=== PATIENT | female | born 1990 | race Caucasian/White ===

== ENCOUNTER 2019-07-03 16:55 | Emergency (ER) | payer MEDICAID, MEDICARE ==
[~2019-07-03] VITALS: Ht 175.3 cm; Wt 54.4 kg
[2019-07-03 16:59] VITALS: BP 177/112
[2019-07-03] MEDS ORDERED: SEROQUEL300 MG ORAL (17:02)
--- NOTE | 2019-07-03 17:05 | NUR ---
ED Nurse Note: patient walked into ED from home c/o nausea, vomiting for the past 8 hours. patient denies any abdominal pain or diarrhea. patient is alert awake x 4 ambulatory, breathing unlabored and even, speaking in full sentences.
--- NOTE | 2019-07-03 17:07 | NUR ---
ED Nurse Note: DR Garcia at bedside, patient reports she has been having intensely drinking alcohol for the past 4 days. patient reports she may be going through alcohol withdrawal. patient reports she last drank last night.
--- NOTE | 2019-07-03 17:12 | Emergency Room Report ---
History of Present Illness General Chief Complaint: Nausea Source: Patient Present Illness HPI 29-year-old female presents with acute nausea vomiting, started today after not drinking alcohol last drink was yesterday she has been drinking multiple beers every day for the past week, she states she has a history of alcohol withdrawal never had a seizure, severity is moderate, constant she feels shaky, feels nauseous, she endorses some abdominal cramps mild in nature no diarrhea no chest pain or shortness of breath patient presents for evaluation Allergies: Coded Allergies: No Known Allergies (Unverified , 07/03/19) COVID-19 Screening Contact w/high risk pt: No Recent Travel to affected area: No Experienced COVID-19 symptoms?: No Patient History Past Medical History: see triage record Social History: Reports: smoking, alcohol use Last Menstrual Period: JUNE 2019 Now: No Reviewed Nursing Documentation: PMH: Agreed; PSxH: Agreed Nursing Documentation-PMH Past Medical History: No Stated History Review of Systems All Other Systems: negative except mentioned in HPI Physical Exam Vital Signs Date Time Temp Pulse Resp B/P (MAP) Pulse Ox O2 Delivery O2 Flow Rate FiO2 07/03/19 16:59 97.9 93 18 177/112 96 Room Air Sp02 EP Interpretation: reviewed, normal General Appearance: well appearing, no apparent distress, alert Head: normocephalic, atraumatic Eyes: bilateral eye PERRL, bilateral eye EOMI ENT: uvula midline, moist mucus membranes Neck: supple, thyroid normal, supple/symm/no masses Respiratory: lungs clear, no respiratory distress, no retraction, no accessory muscle use Cardiovascular #1: normal peripheral pulses, regular rate, rhythm, no edema, no gallop, no murmur Gastrointestinal: non tender, soft, no guarding, no rebound Musculoskeletal: normal inspection Neurologic: alert, oriented x3 Psychiatric: anxious Skin: no rash, warm/dry Medical Decision Making Diagnostic Impression: Primary Impression: Alcohol withdrawal Qualified Codes: F10.230 - Alcohol dependence with withdrawal, uncomplicated ER Course 29-year-old female presents with mild alcohol withdrawal, patient given Ativan, and Librium reevaluation 6:23 PM patient is tolerating good p.o., feels better Counseled patient that she needs to slowly stop drinking alcohol she can drink and then stop suddenly otherwise she can precipitate withdrawal Tremulousness has stopped Laboratory Tests Test 07/03/19 17:15 White Blood Count 6.9 K/UL (4.8-10.8) Red Blood Count 4.62 M/UL (4.20-5.40) Hemoglobin 15.4 G/DL (12.0-16.0) Hematocrit 44.2 % (37.0-47.0) Mean Corpuscular Volume 96 FL (80-99) Mean Corpuscular Hemoglobin 33.3 PG (27.0-31.0) H Mean Corpuscular Hemoglobin Concent 34.8 G/DL (32.0-36.0) Red Cell Distribution Width 11.7 % (11.6-14.8) Platelet Count 287 K/UL (150-450) Mean Platelet Volume 5.0 FL (6.5-10.1) L Neutrophils (%) (Auto) 84.3 % (45.0-75.0) H Lymphocytes (%) (Auto) 11.7 % (20.0-45.0) L Monocytes (%) (Auto) 3.5 % (1.0-10.0) Eosinophils (%) (Auto) 0.0 % (0.0-3.0) Basophils (%) (Auto) 0.5 % (0.0-2.0) Sodium Level 137 MMOL/L (136-145) Potassium Level 3.9 MMOL/L (3.5-5.1) Chloride Level 95 MMOL/L (98-107) L Carbon Dioxide Level 17 MMOL/L (21-32) L Anion Gap 25 mmol/L (5-15) H Blood Urea Nitrogen 8 mg/dL (7-18) Creatinine 0.7 MG/DL (0.55-1.30) Estimated Glomerular Filtration Rate > 60 mL/min (>60) Glucose Level 108 MG/DL (74-106) H Calcium Level 10.0 MG/DL (8.5-10.1) Total Bilirubin 2.1 MG/DL (0.2-1.0) H Direct Bilirubin 0.5 MG/DL (0.0-0.3) H Aspartate Amino Transferase (AST) 69 U/L (15-37) H Alanine Aminotransferase (ALT) 116 U/L (12-78) H Alkaline Phosphatase 60 U/L (46-116) Total Protein 9.1 G/DL (6.4-8.2) H Albumin 5.3 G/DL (3.4-5.0) H Globulin 3.8 g/dL Albumin/Globulin Ratio 1.4 (1.0-2.7) Lipase 129 U/L (73-393) Human Chorionic Gonadotropin, Quant < 1 mIU/mL (1-6) L Last Vital Signs Date Time Temp Pulse Resp B/P (MAP) Pulse Ox O2 Delivery O2 Flow Rate FiO2 07/03/19 16:59 97.9 93 18 177/112 (133) 96 Room Air Disposition: HOME, SELF-CARE Condition: Stable Scripts Ondansetron (Zofran) 4 Mg Tablet 4 MG ORAL Q8H PRN for Nausea & Vomiting, #10 TAB 0 Refills Prov: Stu Garcia MD 07/03/19 Famotidine* (Pepcid 20mg tablet*) 20 Mg Tablet 20 MG ORAL TWICE A DAY, #60 TAB 0 Refills Prov: Stu Garcia MD 07/03/19 Referrals: [facility] Patient Instructions: Alcohol Use Disorder, Alcohol Withdrawal, [id number] Additional Instructions: The patient was provided with discharge instructions, notified to follow-up with a primary care doctor and or specialist in the next 24-48 hours, and to return to the ED if they have worsening of their symptoms. Please note that this report is being documented using [employer] technology. This can lead to erroneous entry secondary to incorrect interpretation by the dictating instrument. Stu Garcia MD Jul 03, 2019 17:12
[2019-07-03] MEDS ORDERED: chlordiazePOXIDE 25mg Cap ORAL ONE (17:15)
[2019-07-03] MEDS ORDERED: LORazepam Inj 2mg/ml 1ml IV ONE (17:15)
[2019-07-03] MEDS ORDERED: Mylanta II UD 30ml ORAL ONE (17:15)
[2019-07-03 17:51] LABS: BASOPHILS % (AUTO) 0.5 % (0.0-2.0); HEMATOCRIT 44.2 % (37.0-47.0); HEMOGLOBIN 15.4 G/DL (12.0-16.0); LYMPHOCYTES % (AUTO) 11.7 % (20.0-45.0); MEAN CORPUSCULAR VOLUME 96 FL (80-99); MONOCYTES % (AUTO) 3.5 % (1.0-10.0); NEUTROPHILS % (AUTO) 84.3 % (45.0-75.0); PLATELET COUNT 287 K/UL (150-450); RED BLOOD COUNT 4.62 M/UL (4.20-5.40); RED CELL DISTRIBUTION WIDTH 11.7 % (11.6-14.8); WHITE BLOOD COUNT 6.9 K/UL (4.8-10.8)
[2019-07-03 17:59] LABS: ANION GAP 25 mmol/L (5-15); BLOOD UREA NITROGEN 8 mg/dL (7-18); CARBON DIOXIDE 17 MMOL/L (21-32); CHLORIDE 95 MMOL/L (98-107); CREATININE 0.7 MG/DL (0.55-1.30); POTASSIUM 3.9 MMOL/L (3.5-5.1); SODIUM 137 MMOL/L (136-145)
[2019-07-03 18:10] LABS: ALANINE AMINOTRANSFERASE 116 U/L (12-78); ALBUMIN 5.3 G/DL (3.4-5.0); ALBUMIN/GLOBULIN RATIO 1.4 (1.0-2.7); ALKALINE PHOSPHATASE 60 U/L (46-116); ASPARTATE AMINO TRANSFERASE 69 U/L (15-37); BILIRUBIN,TOTAL 2.1 MG/DL (0.2-1.0)
[2019-07-03 18:11] LABS: BILIRUBIN,DIRECT 0.5 MG/DL (0.0-0.3)
[2019-07-03] MEDS ORDERED: ZOFRAN4 MG ORAL (18:24)
[2019-07-03] MEDS ORDERED: FAMOTIDINE20 MG ORAL (18:24)
[2019-07-03 18:35] VITALS: BP 141/99
[2019-07-03 18:39] VITALS: BP 141/99
--- NOTE | 2019-07-03 18:39 | NUR ---
ER DISCHARGE NOTE: Patient is cleared to be discharged per EDGAR ELDER, pt is aox4, on room air, with stable vital signs. pt was given dc and prescription instructions, pt was able to verbalize understanding, pt id band and iv site removed without complications. pt is able to ambulate with steady gait. pt took all belongings.
== END 2019-07-03 18:39 | disposition home or self-care (01) ==
LOC: EMR 17:31
DX: F10.239 Alcohol dependence with withdrawal, unspecified (principal); R11.2 Nausea with vomiting, unspecified; F17.200 Nicotine dependence, unspecified, uncomplicated
CPT/HCPCS: 36415; 80053; 82248; 83690; 84702; 85025; 96361; 96374; 96375; 99284; J2405; J7030; S0028

== ENCOUNTER 2019-11-19 09:13 | Emergency (ER) | payer MEDICAID, MEDICARE ==
[~2019-11-19] VITALS: Ht 175.3 cm; Wt 54.4 kg
[~2019-11-19 09:13] MED LIST: FAMOTIDINE20 MG ORAL; SEROQUEL300 MG ORAL; ZOFRAN4 MG ORAL
[2019-11-19 09:42] VITALS: BP 107/78
[2019-11-19] MEDS ORDERED: chlordiazePOXIDE 25mg Cap ORAL ONE (09:45)
--- NOTE | 2019-11-19 09:47 | Emergency Room Report ---
History of Present Illness General Chief Complaint: Alcohol Intoxication Source: Patient Present Illness HPI 29-year-old female presents with 4 days of binge drinking history of alcohol withdrawal no seizures, patient states she did not he feels tremulous, she states she drank alcohol last night, feels a little shaky denies any fevers chills chest pain she states she needs informational resources, she has not yet called the resources she has been provided, severity is moderate, constant aggravated by alcohol abuse alleviated by getting off alcohol patient presents for evaluation treatment Allergies: Coded Allergies: No Known Allergies (Unverified , 07/03/19) COVID-19 Screening Contact w/high risk pt: No Recent Travel to affected area: No Experienced COVID-19 symptoms?: No COVID-19 Testing performed CUSTOMER PROGRAM MANAGER: No Patient History Past Medical History: see triage record Last Menstrual Period: 11/05/19 Now: No : 1 Para: 0 Reviewed Nursing Documentation: PMH: Agreed; PSxH: Agreed Nursing Documentation-PMH Past Medical History: No History, Except For Hx Cardiac Problems: No - anxiety, panic attack. Review of Systems All Other Systems: negative except mentioned in HPI Physical Exam Vital Signs Date Time Temp Pulse Resp B/P (MAP) Pulse Ox O2 Delivery O2 Flow Rate FiO2 11/19/19 09:19 98.1 93 19 107/78 (88) 97 Room Air General Appearance: well appearing, no apparent distress Head: normocephalic, atraumatic Eyes: bilateral eye PERRL, bilateral eye EOMI ENT: hearing grossly normal, normal voice Neck: full range of motion, supple Respiratory: no respiratory distress, speaking full sentences Neurologic: alert, normal gait Psychiatric: mood/affect normal Skin: no rash Medical Decision Making Diagnostic Impression: Primary Impression: Alcohol abuse ER Course 29-year-old female presents with alcohol abuse, currently no signs of active withdrawal no tremulousness, no tachycardia, patient was given a small dose of Librium, patient's friend will pick her up, a list of resources were given to patient in order to look for alcohol treatment programs Patient was [facility] to [facility], [employer] [facility], [facility] Disposition home with return precautions Last Vital Signs Date Time Temp Pulse Resp B/P (MAP) Pulse Ox O2 Delivery O2 Flow Rate FiO2 11/19/19 09:42 98.1 70 19 107/78 97 Room Air Disposition: HOME, SELF-CARE Condition: Stable Referrals: NON PHYSICIAN ([facility]) [facility] Patient Instructions: Alcohol Use Disorder Additional Instructions: The patient was provided with discharge instructions, notified to follow-up with a primary care doctor and or specialist in the next 24-48 hours, and to return to the ED if they have worsening of their symptoms. Please note that this report is being documented using [employer] technology. This can lead to erroneous entry secondary to incorrect interpretation by the dictating instrument. Stu Garcia MD Nov 19, 2019 09:47
[2019-11-19] MEDS ORDERED: ZOFRAN4 MG ORAL (09:53)
[2019-11-19 09:58] VITALS: BP 107/78
== END 2019-11-19 09:59 | disposition home or self-care (01) ==
LOC: EMR 09:28
DX: F10.10 Alcohol abuse, uncomplicated (principal)
CPT/HCPCS: 81025; Z7502; 99282

== ENCOUNTER 2019-12-18 03:31 | Inpatient (IN) | payer MEDICAID ==
[~2019-12-18] VITALS: Ht 175.3 cm; Wt 56.0 kg
[2019-12-18] VITALS (7 sets, daily range): BP systolic 122–148; BP diastolic 85–95
[2019-12-18] MEDS ORDERED: LORazepam Inj 2mg/ml 1ml IV ONE ×2 (03:45→04:15)
[2019-12-18] MEDS ORDERED: Folic Acid 1 MG, Magnesium Sulfate 2,000 MG, Multivitamin - 12 Injection 10 ML, Thiamin... IV ONE ×10 (03:45→04:15)
--- NOTE | 2019-12-18 03:50 | Emergency Room Report ---
History of Present Illness General Chief Complaint: Alcohol Withdrawal Source: Patient Present Illness HPI Patient is a 29-year-old female past medical history of alcohol abuse who presents the ER complaining of nausea and vomiting. Patient states that she consumes a significant amount of alcohol daily and that her last drink was around 5 hours ago. She states that she started having nausea, vomiting and shaking. She states that she falls frequently and hit her head a couple days ago. She denies any chest pain or shortness of breath. She denies any focal weakness. Patient denies any blood in her emesis. She denies any abdominal pain, diarrhea or dysuria. He denies any fever or chills. Allergies: Coded Allergies: No Known Allergies (Unverified , 07/03/19) COVID-19 Screening Contact w/high risk pt: No Recent Travel to affected area: No Experienced COVID-19 symptoms?: No Patient History Reviewed Nursing Documentation: PMH: Agreed; PSxH: Agreed Nursing Documentation-PMH Hx Cardiac Problems: No - anxiety, panic attack. Review of Systems All Other Systems: negative except mentioned in HPI Physical Exam Sp02 EP Interpretation: reviewed, normal General Appearance: alert, GCS 15, non-toxic, mild distress Head: other - Scattered ecchymosis and hematomas to patient's forehead Eyes: bilateral eye normal inspection, bilateral eye PERRL ENT: hearing grossly normal, normal pharynx, no angioedema, normal voice Neck: full range of motion, supple/symm/no masses Respiratory: chest non-tender, lungs clear, normal breath sounds, speaking full sentences Cardiovascular #1: regular rate, rhythm, no edema Gastrointestinal: normal bowel sounds, non tender, soft, non-distended, no guarding, no rebound Rectal: deferred Musculoskeletal: no calf tenderness, moves extm spontaneously Neurologic: environmental field team member III-XII nml as tested, oriented x3, other - + tremors Psychiatric: no suicidal/homicidal ideation Skin: no rash Lymphatic: no adenopathy Procedures Critical Care Time Critical Care Time Total critical care time: Approximately 35 minutes. Due to a high probability of clinically significant, life threatening deterioration, the patient required my highest level of preparedness to intervene emergently and I personally spent this critical care time directly and personally managing the patient. This critical care time included obtaining a history; examining the patient; pulse oximetry; ordering and review of studies; arranging urgent treatment with development of a management plan; evaluation of patient's response to treatment ; frequent reassessment; and, discussions with other providers.This critical care time was performed to assess and manage the high probability of imminent, life-threatening deterioration that could result in multi-organ failure. It was exclusive of separately billable procedures and treating other patients and teaching time. Please see MDM section and the rest of the note for further information on patient assessment and treatment. Medical Decision Making Diagnostic Impression: Primary Impression: Severe sepsis Additional Impressions: Hypokalemia Alcohol withdrawal Hypomagnesemia UTI (urinary tract infection) ER Course Laboratory Tests Test 12/18/19 03:42 12/18/19 03:43 12/18/19 04:04 12/18/19 04:50 Venous Blood pH 7.519 Venous Blood Partial Pressure CO2 19.9 Venous Blood Partial Pressure O2 16.1 Venous Blood HCO3 15.8 Venous Blood Total Carbon Dioxide 19.9 Venous Blood Base Excess -4.5 Venous Blood Carboxyhemoglobin 0.3 % (0.5-1.5) L Methemoglobin 2.3 White Blood Count 24.0 K/UL (4.8-10.8) *H Red Blood Count 4.62 M/UL (4.20-5.40) Hemoglobin 15.7 G/DL (12.0-16.0) Hematocrit 42.8 % (37.0-47.0) Mean Corpuscular Volume 93 FL (80-99) Mean Corpuscular Hemoglobin 34.1 PG (27.0-31.0) H Mean Corpuscular Hemoglobin Concent 36.8 G/DL (32.0-36.0) H Red Cell Distribution Width 10.5 % (11.6-14.8) L Platelet Count 314 K/UL (150-450) Mean Platelet Volume 5.1 FL (6.5-10.1) L Neutrophils (%) (Auto) % (45.0-75.0) Lymphocytes (%) (Auto) % (20.0-45.0) Monocytes (%) (Auto) % (1.0-10.0) Eosinophils (%) (Auto) % (0.0-3.0) Basophils (%) (Auto) % (0.0-2.0) Differential Total Cells Counted 100 Neutrophils % (Manual) 88 % (45-75) H Lymphocytes % (Manual) 7 % (20-45) L Monocytes % (Manual) 5 % (1-10) Eosinophils % (Manual) 0 % (0-3) Basophils % (Manual) 0 % (0-2) Band Neutrophils 0 % (0-8) Platelet Estimate Adequate Platelet Morphology Normal Prothrombin Time 11.3 SEC (9.30-11.50) Prothrombin Time INR 1.0 (0.9-1.1) Activated Partial Thromboplast Time 24 SEC (23-33) Sodium Level 142 MMOL/L (136-145) Potassium Level 3.2 MMOL/L (3.5-5.1) L Chloride Level 99 MMOL/L (98-107) Carbon Dioxide Level 21 MMOL/L (21-32) Anion Gap 22 mmol/L (5-15) H Blood Urea Nitrogen 10 mg/dL (7-18) Creatinine 1.2 MG/DL (0.55-1.30) Estimated Glomerular Filtration Rate 52.4 mL/min (>60) Glucose Level 213 MG/DL (74-106) H Calcium Level 9.8 MG/DL (8.5-10.1) Magnesium Level 1.3 MG/DL (1.8-2.4) L Total Bilirubin 2.3 MG/DL (0.2-1.0) H Direct Bilirubin 0.5 MG/DL (0.0-0.3) H Aspartate Amino Transferase (AST) 50 U/L (15-37) H Alanine Aminotransferase (ALT) 48 U/L (12-78) Alkaline Phosphatase 54 U/L (46-116) Total Protein 9.0 G/DL (6.4-8.2) H Albumin 5.3 G/DL (3.4-5.0) H Globulin 3.7 g/dL Albumin/Globulin Ratio 1.4 (1.0-2.7) Lipase 83 U/L (73-393) Lactic Acid Level 6.30 mmol/L (0.4-2.0) H 4.10 mmol/L (0.66-2.22) H Test 12/18/19 05:20 Urine Color Yellow Urine Appearance Clear Urine pH 6 (4.5-8.0) Urine Specific [place] 1.015 (1.005-1.035) Urine Protein 2+ (NEGATIVE) H Urine Glucose (UA) Negative (NEGATIVE) Urine Ketones 4+ (NEGATIVE) H Urine Blood 2+ (NEGATIVE) H Urine Nitrite Positive (NEGATIVE) H Urine Bilirubin Negative (NEGATIVE) Urine Urobilinogen 1 MG/DL (0.0-1.0) H Urine Leukocyte Esterase 1+ (NEGATIVE) H Urine RBC 2-4 /HPF (0 - 2) H Urine WBC 0-2 /HPF (0 - 2) Urine Squamous Epithelial Cells Many /LPF (NONE/OCC) H Urine Bacteria Few /HPF (NONE) Urine HCG, Qualitative Negative (NEGATIVE) Urine Opiates Screen Negative (NEGATIVE) Urine Barbiturates Screen Negative (NEGATIVE) Phencyclidine (PCP) Screen Negative (NEGATIVE) Urine Amphetamines Screen Negative (NEGATIVE) Urine Benzodiazepines Screen Negative (NEGATIVE) Urine Cocaine Screen Negative (NEGATIVE) Urine Marijuana (THC) Screen Negative (NEGATIVE) Microbiology Date/Time Source Procedure Growth Status 12/18/19 04:50 Nasopharynx SARS-CoV-2 RdRp Gene Assay - Final Complete Laboratory Tests Test 12/18/19 03:42 12/18/19 03:43 12/18/19 04:04 12/18/19 04:50 Venous Blood pH 7.519 Venous Blood Partial Pressure CO2 19.9 Venous Blood Partial Pressure O2 16.1 Venous Blood HCO3 15.8 Venous Blood Total Carbon Dioxide 19.9 Venous Blood Base Excess -4.5 Venous Blood Carboxyhemoglobin 0.3 % (0.5-1.5) L Methemoglobin 2.3 White Blood Count 24.0 K/UL (4.8-10.8) *H Red Blood Count 4.62 M/UL (4.20-5.40) Hemoglobin 15.7 G/DL (12.0-16.0) Hematocrit 42.8 % (37.0-47.0) Mean Corpuscular Volume 93 FL (80-99) Mean Corpuscular Hemoglobin 34.1 PG (27.0-31.0) H Mean Corpuscular Hemoglobin Concent 36.8 G/DL (32.0-36.0) H Red Cell Distribution Width 10.5 % (11.6-14.8) L Platelet Count 314 K/UL (150-450) Mean Platelet Volume 5.1 FL (6.5-10.1) L Neutrophils (%) (Auto) % (45.0-75.0) Lymphocytes (%) (Auto) % (20.0-45.0) Monocytes (%) (Auto) % (1.0-10.0) Eosinophils (%) (Auto) % (0.0-3.0) Basophils (%) (Auto) % (0.0-2.0) Differential Total Cells Counted 100 Neutrophils % (Manual) 88 % (45-75) H Lymphocytes % (Manual) 7 % (20-45) L Monocytes % (Manual) 5 % (1-10) Eosinophils % (Manual) 0 % (0-3) Basophils % (Manual) 0 % (0-2) Band Neutrophils 0 % (0-8) Platelet Estimate Adequate Platelet Morphology Normal Prothrombin Time 11.3 SEC (9.30-11.50) Prothrombin Time INR 1.0 (0.9-1.1) Activated Partial Thromboplast Time 24 SEC (23-33) Sodium Level 142 MMOL/L (136-145) Potassium Level 3.2 MMOL/L (3.5-5.1) L Chloride Level 99 MMOL/L (98-107) Carbon Dioxide Level 21 MMOL/L (21-32) Anion Gap 22 mmol/L (5-15) H Blood Urea Nitrogen 10 mg/dL (7-18) Creatinine 1.2 MG/DL (0.55-1.30) Estimated Glomerular Filtration Rate 52.4 mL/min (>60) Glucose Level 213 MG/DL (74-106) H Calcium Level 9.8 MG/DL (8.5-10.1) Magnesium Level 1.3 MG/DL (1.8-2.4) L Total Bilirubin 2.3 MG/DL (0.2-1.0) H Direct Bilirubin 0.5 MG/DL (0.0-0.3) H Aspartate Amino Transferase (AST) 50 U/L (15-37) H Alanine Aminotransferase (ALT) 48 U/L (12-78) Alkaline Phosphatase 54 U/L (46-116) Total Protein 9.0 G/DL (6.4-8.2) H Albumin 5.3 G/DL (3.4-5.0) H Globulin 3.7 g/dL Albumin/Globulin Ratio 1.4 (1.0-2.7) Lipase 83 U/L (73-393) Lactic Acid Level 6.30 mmol/L (0.4-2.0) H Pending Test 12/18/19 05:20 Urine Color Pending Urine Appearance Pending Urine pH Pending Urine Specific [place] Pending Urine Protein Pending Urine Glucose (UA) Pending Urine Ketones Pending Urine Blood Pending Urine Nitrite Pending Urine Bilirubin Pending Urine Urobilinogen Pending Urine Leukocyte Esterase Pending Urine HCG, Qualitative Pending Urine Opiates Screen Pending Urine Barbiturates Screen Pending Phencyclidine (PCP) Screen Pending Urine Amphetamines Screen Pending Urine Benzodiazepines Screen Pending Urine Cocaine Screen Pending Urine Marijuana (THC) Screen Pending Patient has been pancultured. Lactate elevated with significant leukocytosis. Patient started on broad-spectrum antibiotics. Patient given IV fluids 30 cc/ kg. Patient's vital signs have been stable. Patient given multiple doses of IV Ativan to control her tremors as well as banana bag. Her potassium and magnesium has been repleted. Will be admitted for further treatment and evaluation. EKG Diagnostic Results EKG Time: 04:58 EP Interpretation: Maggie Kelly MD Rate: normal Rhythm: NSR ST Segments: no acute changes Other Impression Prolonged QT ASA given to the pt in ED: No Rhythm Strip Diag. Results Rhythm Strip Time: 03:59 EP Interpretation: yes - Maggie Kelly MD Rate: 80 bpm Rhythm: NSR, no PVC's, no ectopy Chest X-Ray Diagnostic Results Chest X-Ray Diagnostic Results : Chest X-Ray Ordered: Yes # of Views/Limited/Complete: 1 View Indication: Chest Pain EP Interpretation: Yes Interpretation: no consolidation, no effusion, no pneumothorax, no acute cardiopulmonary disease Impression: No acute disease Electronically Signed by: Maggie Kelly MD Disposition: ADMITTED INPATIENT Condition: Critical Physician Consult: Dr. Jeff at 5:45am Additional Instructions: Please note that this report is being documented using [employer] technology. This can lead to erroneous entry secondary to incorrect interpretation by the dictating instrument. Sepsis Event Note Evaluation Current Stage of Sepsis: Severe Sepsis Possible Source: Unknown Focused Exam Allergies: Coded Allergies: No Known Allergies (Unverified , 07/03/19) Date Exam Occurred: Dec 18, 2019 Time Exam Occurred: 04:46 Laboratory Studies Laboratory Tests Test 12/18/19 03:42 12/18/19 03:43 12/18/19 04:04 Venous Blood pH 7.519 Venous Blood Partial Pressure CO2 19.9 Venous Blood Partial Pressure O2 16.1 Venous Blood HCO3 15.8 Venous Blood Total Carbon Dioxide 19.9 Venous Blood Base Excess -4.5 Venous Blood Carboxyhemoglobin 0.3 % (0.5-1.5) L Methemoglobin 2.3 White Blood Count 24.0 K/UL (4.8-10.8) *H Red Blood Count 4.62 M/UL (4.20-5.40) Hemoglobin 15.7 G/DL (12.0-16.0) Hematocrit 42.8 % (37.0-47.0) Mean Corpuscular Volume 93 FL (80-99) Mean Corpuscular Hemoglobin 34.1 PG (27.0-31.0) H Mean Corpuscular Hemoglobin Concent 36.8 G/DL (32.0-36.0) H Red Cell Distribution Width 10.5 % (11.6-14.8) L Platelet Count 314 K/UL (150-450) Mean Platelet Volume 5.1 FL (6.5-10.1) L Neutrophils (%) (Auto) % (45.0-75.0) Lymphocytes (%) (Auto) % (20.0-45.0) Monocytes (%) (Auto) % (1.0-10.0) Eosinophils (%) (Auto) % (0.0-3.0) Basophils (%) (Auto) % (0.0-2.0) Neutrophils % (Manual) Pending Lymphocytes % (Manual) Pending Platelet Estimate Pending Platelet Morphology Pending Prothrombin Time 11.3 SEC (9.30-11.50) Prothromb Time International Ratio 1.0 (0.9-1.1) Activated Partial Thromboplast Time 24 SEC (23-33) Sodium Level 142 MMOL/L (136-145) Potassium Level 3.2 MMOL/L (3.5-5.1) L Chloride Level 99 MMOL/L (98-107) Carbon Dioxide Level 21 MMOL/L (21-32) Anion Gap 22 mmol/L (5-15) H Blood Urea Nitrogen 10 mg/dL (7-18) Creatinine 1.2 MG/DL (0.55-1.30) Estimat Glomerular Filtration Rate 52.4 mL/min (>60) Glucose Level 213 MG/DL (74-106) H Calcium Level 9.8 MG/DL (8.5-10.1) Magnesium Level 1.3 MG/DL (1.8-2.4) L Total Bilirubin 2.3 MG/DL (0.2-1.0) H Direct Bilirubin 0.5 MG/DL (0.0-0.3) H Aspartate Amino Transf (AST/SGOT) 50 U/L (15-37) H Alanine Aminotransferase (ALT/SGPT) 48 U/L (12-78) Alkaline Phosphatase 54 U/L (46-116) Total Protein 9.0 G/DL (6.4-8.2) H Albumin 5.3 G/DL (3.4-5.0) H Globulin 3.7 g/dL Albumin/Globulin Ratio 1.4 (1.0-2.7) Lipase 83 U/L (73-393) Lactic Acid Level 6.30 mmol/L (0.4-2.0) H Vital Signs Last 24 Hour Vital Signs Date Time Temp Pulse Resp B/P (MAP) Pulse Ox O2 Delivery O2 Flow Rate FiO2 12/18/19 04:15 87 20 139/78 98 12/18/19 03:50 98 24 Room Air 12/18/19 03:50 98.2 98 24 148/95 98 Room Air 12/18/19 03:45 98.2 120 25 148/95 (112) 100 Room Air 12/18/19 03:45 133 24 148/95 98 Respiratory Exam: Clear Cardiovascular Exam: RRR Capillary Refill: Less Than 2 Seconds Peripheral Pulse: Maggie Love M.D. Dec 18, 2019 03:50
--- NOTE | 2019-12-18 03:50 | NUR ---
ED Nurse Note: brought in to ed c/o etoh withdrawal onset today. presents with tremor, nv, and states last etoh was 5 hrs ago. ermd at bedside, on monitor.
[2019-12-18 03:59] LABS: HEMATOCRIT 42.8 % (37.0-47.0); HEMOGLOBIN 15.7 G/DL (12.0-16.0); MEAN CORPUSCULAR VOLUME 93 FL (80-99); PLATELET COUNT 314 K/UL (150-450); RED BLOOD COUNT 4.62 M/UL (4.20-5.40); RED CELL DISTRIBUTION WIDTH 10.5 % (11.6-14.8)
--- NOTE | 2019-12-18 04:00 | NUR ---
ED Nurse Note: blood drawn and sent to lab
--- NOTE | 2019-12-18 04:10 | NUR ---
ED Nurse Note: vbg drawn by primary rn and given to rt for VBG
[2019-12-18 04:12] LABS: CALCIUM 9.8 MG/DL (8.5-10.1); CREATININE 1.2 MG/DL (0.55-1.30); POTASSIUM 3.2 MMOL/L (3.5-5.1)
--- NOTE | 2019-12-18 04:21 | NUR ---
ED Nurse Note: XR AT BEDSIDE
[2019-12-18 04:23] LABS: ALBUMIN 5.3 G/DL (3.4-5.0); ALBUMIN/GLOBULIN RATIO 1.4 (1.0-2.7); BILIRUBIN,TOTAL 2.3 MG/DL (0.2-1.0)
[2019-12-18 04:25] LABS: BILIRUBIN,DIRECT 0.5 MG/DL (0.0-0.3)
[2019-12-18] MEDS ORDERED: Thiamine 100mg in D5W 55ml IVPB ONE (04:30)
[2019-12-18] MEDS ORDERED: Folic Acid 1 MG, Magnesium Sulfate 2,000 MG, Multivitamin - 12 Injection 10 ML in Sodiu... IV ONE (04:30)
--- NOTE | 2019-12-18 04:35 | NUR ---
ED Nurse Note: unable to scan thiamine as the code was not valid. manual scan initiated and mixed 100mg thiamine in 50ml d5 solution.
--- NOTE | 2019-12-18 04:36 | NUR ---
ED Nurse Note: unable to obtain folvite as it is not in pyxis. per ermd, okay to wait for pharmacy in the morning as the patient is in stable condition. will continue to monitor patient.
--- NOTE | 2019-12-18 04:37 | NUR ---
ED Nurse Note: pt went to ct
[2019-12-18] MEDS ORDERED: Cefepime HCl 2 GM in D5W 55 ML IVPB ONE (04:45)
[2019-12-18] MEDS ORDERED: Vancomycin 1 GM in NS 275 ML IVPB ONE (04:45)
--- NOTE | 2019-12-18 04:47 | NUR ---
ED Nurse Note: pt back from ct
--- NOTE | 2019-12-18 05:30 | Diagnostic Imaging Report ---
EXAM: CT Head Without Intravenous Contrast CLINICAL HISTORY: TRAUMA TECHNIQUE: Axial computed tomography images of the head/brain without intravenous contrast. CTDI is 53.4 mGy and DLP is 1125.7 mGy-cm. One or more of the following dose reduction techniques were used: automated exposure control, adjustment of the mA and/or kV according to patient size, use of iterative reconstruction technique. COMPARISON: No relevant prior studies available. FINDINGS: Brain: Unremarkable. No hemorrhage. No significant white matter disease. No edema. Ventricles: Unremarkable. No ventriculomegaly. Bones/joints: Unremarkable. No acute fracture. Soft tissues: Unremarkable. Sinuses: Unremarkable as visualized. No acute sinusitis. Mastoid air cells: Unremarkable as visualized. No mastoid effusion. IMPRESSION: No evidence of acute intracranial process. Paranasal sinuses and mastoids are clear.
[2019-12-18 05:46] LABS: APPEARANCE,URINE CLEAR; BILIRUBIN, URINE NEGATIVE (NEGATIVE); GLUCOSE, URINE (UA) NEGATIVE (NEGATIVE); KETONES,URINE 4+ (NEGATIVE); LEUKOCYTE ESTERASE ,URINE 1+ (NEGATIVE); NITRITE,URINE POSITIVE (NEGATIVE); PH,URINE 6 (4.5-8.0); PROTEIN,URINE 2+ (NEGATIVE); UROBILINOGEN,URINE 1 MG/DL (0.0-1.0)
[2019-12-18 05:58] LABS: COLOR,URINE YELLOW
--- NOTE | 2019-12-18 07:10 | NUR ---
ED Nurse Note: report given to Ashtyn ALBERTS
--- NOTE | 2019-12-18 07:15 | NUR ---
TRANSFER TO FLOOR: Patient transferred to 234 as ordered, per dr pierre. Report given to Ashtyn ALBERTS. Belongings sent with patient
--- NOTE | 2019-12-18 07:20 | NUR ---
NURSE NOTES: Nurse report given by LEXUS Omer. Patient's admitted to the floor by merle with assist of LEXUS Conway and technical account representative. Patient's in stable condition, ambulates steady, AAO x 4, breathing regular and unlabored, no s/s of distress or SOB, lung sounds clear bilateral, breathing room air saturating at 98%. IV is saline locked, flushed well and patent. Bed low and locked, call light within reach, side rails x 2. salon designer applied, patient refused to change to hospital gown. Patient belonging list went over with both RNs at bedside. Patient has $94 dollars in [place], patient refused money to be kept in the safe. ID band noted on L arm. Will continue to monitor.
--- NOTE | 2019-12-18 07:53 | NUR ---
NURSE NOTES: Called and left message to Dr. Quintana regarding patient's admitting to [facility] at 0720. Awaiting for admitting orders.
[2019-12-18] MEDS ORDERED: Amikacin Rx to dose MISC PRN (08:30)
[2019-12-18] MEDS ORDERED: chlordiazePOXIDE 25mg Cap ORAL PRN (08:30)
[2019-12-18] MEDS ORDERED: Zolpidem 5mg tab ORAL PRN (08:30)
[2019-12-18] MEDS ORDERED: Miralax 17gm pkt ORAL PRN (08:30)
[2019-12-18] MEDS: Heparin 5000 units/ml inj SUBQ SCH ×2 (09:00→21:20)
[2019-12-18] MEDS: Piperacillin/Tazobactam 3.375 GM in NS 110 ML IVPB SCH ×2 (09:25→17:00)
[2019-12-18] MEDS ORDERED: Amikacin 800 MG in NS 110 ML IV SCH ×2 (10:00→13:00)
[2019-12-18] MEDS ORDERED: LORazepam Inj 2mg/ml 1ml IV PRN ×2 (10:45)
[2019-12-18] MEDS: chlordiazePOXIDE 25mg Cap ORAL SCH ×3 (11:17→23:39)
[2019-12-18] MEDS: LORazepam Inj 2mg/ml 1ml IV PRN (11:17)
--- NOTE | 2019-12-18 11:50 | NUR ---
CASE MANAGEMENT:INITIAL REVIEW 29 YO F BIBA FROM HOME CC: ALCOHOL WITHDRAWAL >>> complaining of nausea and vomiting PMHx; anxiety, panic attack. SI:SEPSIS. COVID (-) VS: T 98.2 HR 133 RR 24 B/P 148/95 SATS 100% ON RA LABS: WBC 24 K 3.2 AGAP 22 GLU 213 LACTIC ACID 6.3 MG 1.3 TBILI 2.3 DBILI 0.5 AST 50 IS: NS BOLUS X2 ZOFRAN IV X2 ATIVAN IV X2 FOLATE IV X1 THIAMINE IV X1 KCL IV X1 VANCO IV X1 CEFEPIME IV X1 PROMETHAZINE IM X1 PATIENT ADMITTED TO SDU 12/18/2019 @ 0546 DCP: HOME PLAN OF CARE: ID CONSULT SSW CONSULT
--- NOTE | 2019-12-18 11:57 | Consultation ---
History of Present Illness General Date patient seen: Dec 18, 2019 Chief Complaint: Alcohol Intoxication Present Illness HPI 29-year-old female past medical history of alcohol abuse who presents the ER complaining of nausea and vomiting. Patient states that she consumes a significant amount of alcohol daily and that her last drink was around 5 hours ago. She states that she started having nausea, vomiting and shaking. Her WBC was increased as well. Allergies: Coded Allergies: No Known Allergies (Unverified , 07/03/19) Medication History Scheduled Famotidine* (Pepcid 20mg tablet*), 20 MG ORAL TWICE A DAY Quetiapine Fumarate (Seroquel), 300 MG ORAL DAILY, (Reported) Scheduled PRN Ondansetron (Zofran), 4 MG ORAL Q8H PRN for Nausea & Vomiting Ondansetron (Zofran), 4 MG ORAL Q8H PRN for Nausea & Vomiting Patient History Healthcare decision maker Resuscitation status Advanced Directive on File Past Medical/Surgical History Past Medical/Surgical History: (1) ETOH abuse Review of Systems Eye: Reports: no symptoms Physical Exam General Appearance: WD/WN, no apparent distress Lines, tubes and drains: peripheral HEENT: normocephalic, atraumatic Neck: non-tender, normal alignment Respiratory/Chest: chest wall non-tender, lungs clear Cardiovascular/Chest: normal peripheral pulses, regular rhythm Abdomen: normal bowel sounds Last 24 Hour Vital Signs Date Time Temp Pulse Resp B/P (MAP) Pulse Ox O2 Delivery O2 Flow Rate FiO2 12/18/19 11:17 78 20 122/89 99 12/18/19 09:19 Room Air 12/18/19 07:15 98.1 78 20 122/89 99 Room Air 12/18/19 07:15 98.1 78 20 122/89 99 Room Air 12/18/19 06:17 97.8 85 20 128/92 99 Room Air 12/18/19 04:47 87 20 138/76 97 12/18/19 04:15 87 20 139/78 98 12/18/19 03:50 98 24 Room Air 12/18/19 03:50 98.2 98 24 148/95 98 Room Air 12/18/19 03:45 98.2 120 25 148/95 (112) 100 Room Air 12/18/19 03:45 133 24 148/95 98 Intake and Output 12/17/19 12/18/19 19:00 07:00 Intake Total 1000 ml Balance 1000 ml Intake IV Total 1000 ml Laboratory Tests Test 12/18/19 03:42 12/18/19 03:43 12/18/19 04:04 12/18/19 04:50 Venous Blood pH 7.519 Venous Blood Partial Pressure CO2 19.9 Venous Blood Partial Pressure O2 16.1 Venous Blood HCO3 15.8 Venous Blood Total Carbon Dioxide 19.9 Venous Blood Base Excess -4.5 Venous Blood Carboxyhemoglobin 0.3 % (0.5-1.5) L Methemoglobin 2.3 White Blood Count 24.0 K/UL (4.8-10.8) *H Red Blood Count 4.62 M/UL (4.20-5.40) Hemoglobin 15.7 G/DL (12.0-16.0) Hematocrit 42.8 % (37.0-47.0) Mean Corpuscular Volume 93 FL (80-99) Mean Corpuscular Hemoglobin 34.1 PG (27.0-31.0) H Mean Corpuscular Hemoglobin Concent 36.8 G/DL (32.0-36.0) H Red Cell Distribution Width 10.5 % (11.6-14.8) L Platelet Count 314 K/UL (150-450) Mean Platelet Volume 5.1 FL (6.5-10.1) L Neutrophils (%) (Auto) % (45.0-75.0) Lymphocytes (%) (Auto) % (20.0-45.0) Monocytes (%) (Auto) % (1.0-10.0) Eosinophils (%) (Auto) % (0.0-3.0) Basophils (%) (Auto) % (0.0-2.0) Differential Total Cells Counted 100 Neutrophils % (Manual) 88 % (45-75) H Lymphocytes % (Manual) 7 % (20-45) L Monocytes % (Manual) 5 % (1-10) Eosinophils % (Manual) 0 % (0-3) Basophils % (Manual) 0 % (0-2) Band Neutrophils 0 % (0-8) Platelet Estimate Adequate Platelet Morphology Normal Prothrombin Time 11.3 SEC (9.30-11.50) Prothromb Time International Ratio 1.0 (0.9-1.1) Activated Partial Thromboplast Time 24 SEC (23-33) Sodium Level 142 MMOL/L (136-145) Potassium Level 3.2 MMOL/L (3.5-5.1) L Chloride Level 99 MMOL/L (98-107) Carbon Dioxide Level 21 MMOL/L (21-32) Anion Gap 22 mmol/L (5-15) H Blood Urea Nitrogen 10 mg/dL (7-18) Creatinine 1.2 MG/DL (0.55-1.30) Estimat Glomerular Filtration Rate 52.4 mL/min (>60) Glucose Level 213 MG/DL (74-106) H Calcium Level 9.8 MG/DL (8.5-10.1) Magnesium Level 1.3 MG/DL (1.8-2.4) L Total Bilirubin 2.3 MG/DL (0.2-1.0) H Direct Bilirubin 0.5 MG/DL (0.0-0.3) H Aspartate Amino Transf (AST/SGOT) 50 U/L (15-37) H Alanine Aminotransferase (ALT/SGPT) 48 U/L (12-78) Alkaline Phosphatase 54 U/L (46-116) Total Protein 9.0 G/DL (6.4-8.2) H Albumin 5.3 G/DL (3.4-5.0) H Globulin 3.7 g/dL Albumin/Globulin Ratio 1.4 (1.0-2.7) Lipase 83 U/L (73-393) Lactic Acid Level 6.30 mmol/L (0.4-2.0) H 4.10 mmol/L (0.66-2.22) H Test 12/18/19 05:20 Urine Color Yellow Urine Appearance Clear Urine pH 6 (4.5-8.0) Urine Specific [place] 1.015 (1.005-1.035) Urine Protein 2+ (NEGATIVE) H Urine Glucose (UA) Negative (NEGATIVE) Urine Ketones 4+ (NEGATIVE) H Urine Blood 2+ (NEGATIVE) H Urine Nitrite Positive (NEGATIVE) H Urine Bilirubin Negative (NEGATIVE) Urine Urobilinogen 1 MG/DL (0.0-1.0) H Urine Leukocyte Esterase 1+ (NEGATIVE) H Urine RBC 2-4 /HPF (0 - 2) H Urine WBC 0-2 /HPF (0 - 2) Urine Squamous Epithelial Cells Many /LPF (NONE/OCC) H Urine Bacteria Few /HPF (NONE) Urine HCG, Qualitative Negative (NEGATIVE) Urine Opiates Screen Negative (NEGATIVE) Urine Barbiturates Screen Negative (NEGATIVE) Phencyclidine (PCP) Screen Negative (NEGATIVE) Urine Amphetamines Screen Negative (NEGATIVE) Urine Benzodiazepines Screen Negative (NEGATIVE) Urine Cocaine Screen Negative (NEGATIVE) Urine Marijuana (THC) Screen Negative (NEGATIVE) Microbiology Date/Time Source Procedure Growth Status 12/18/19 04:50 Nasopharynx SARS-CoV-2 RdRp Gene Assay - Final Complete Height (Feet): 5 Height (Inches): 9.00 Weight (Pounds): 119 Medications Current Medications Medications (Trade) Dose Ordered Sig/Gil Route PRN Reason Start Time Stop Time Status Last Admin Dose Admin Acetaminophen (Tylenol) 650 mg Q4H PRN ORAL fever (T>100.5) 12/18/19 08:30 01/17/20 08:29 Amikacin Protocol (Amikacin pharmacy to dose) 1 ea DAILY PRN MISC Per rx protocol 12/18/19 08:30 01/17/20 08:29 Chlordiazepoxide (Librium) 25 mg Q6H ORAL 12/18/19 12:00 12/25/19 08:29 12/18/19 11:17 Dextrose (Dextrose 50%) 25 ml Q30M PRN IV Hypoglycemia 12/18/19 08:30 03/17/20 08:29 Dextrose (Dextrose 50%) 50 ml Q30M PRN IV Hypoglycemia 12/18/19 08:30 03/17/20 08:29 Folic Acid 1 mg/ Magnesium Sulfate 2000 mg/ Multivitamins 10 ml/Potassium Chloride/Sodium Chloride 1,014.2 ml @ 124.876 mls/hr Q24H IV 12/19/19 09:00 01/18/20 08:59 Heparin Sodium (Porcine) (Heparin 5000 units/ml) 5,000 units EVERY 12 HOURS SUBQ 12/18/19 09:00 02/01/20 08:59 Lorazepam (Ativan 2mg/ml 1ml) 1 mg Q2H PRN IV For Anxiety 12/18/19 10:00 12/25/19 09:59 12/18/19 11:17 Lorazepam (Ativan 2mg/ml 1ml) 1 mg Q2H PRN IV restlessness 12/18/19 10:45 12/25/19 10:44 Lorazepam (Ativan 2mg/ml 1ml) 1 mg Q2H PRN IV shaking 12/18/19 10:45 12/25/19 10:44 Ondansetron HCl (Zofran) 4 mg Q6H PRN IVP Nausea & Vomiting 12/18/19 08:30 01/17/20 08:29 12/18/19 09:11 Piperacillin Sod/ Tazobactam Sod 3.375 gm/Sodium Chloride 110 ml @ 27.5 mls/hr Q8HR@0100,0900,1700 IVPB 12/18/19 09:00 12/25/19 08:59 12/18/19 09:25 Polyethylene Glycol (Miralax) 17 gm HSPRN PRN ORAL Constipation 12/18/19 08:30 01/17/20 08:29 Thiamine HCl 100 mg/Dextrose 56 ml @ 112 mls/hr Q24H IVPB 12/19/19 09:00 01/18/20 08:59 Zolpidem Tartrate (Ambien) 5 mg HSPRN PRN ORAL Insomnia 12/18/19 08:30 12/25/19 08:29 Assessment/Plan Problem List: (1) Alcohol withdrawal ICD Codes: F10.239 - Alcohol dependence with withdrawal, unspecified SNOMED: 561823571 (2) ETOH abuse ICD Codes: F10.10 - Alcohol abuse, uncomplicated SNOMED: 09830516 (3) UTI (urinary tract infection) ICD Codes: N39.0 - Urinary tract infection, site not specified SNOMED: 21250709 Assessment/Plan: iv fluids banana bag moreno culture iv abx seizure precaution librium Eugenia Spence MD Dec 18, 2019 11:57
[2019-12-18] MEDS ORDERED: chlordiazePOXIDE 25mg Cap ORAL SCH (12:00)
--- NOTE | 2019-12-18 12:33 | NUR ---
insurance b/ar info pending. Addendum: 12/18/19 at 1520 by Radha Oshea [facility] [facility] [facility] FAX CLINICALS TO [facility]ADINA BELLO P:[phone] F:[phone]
--- NOTE | 2019-12-18 14:38 | NUR ---
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 Pt presents as A&O4x. Pt resides w/ her boyfriend at [address] [place] [address] [id number], [place] [address]. Pt reports drinking 5-6x/week. Pt also reports drinking "various" drinks including hard liquors. PT did not provide specific information how much she drinks. Pt admits she is drinking more than average. Pt has hx of IP substance abuse rehab program. PT reports the program was not effective. SW provided brief counseling/support. Pt reported this SW that she will consider substance abuse rehab. Pt has hx of Anxiety and currently does not receive outpatient mental health services. SW provided mental health resource and substance abuse rehab resource. Pt accepted and did not share any further concern/needs at this time.
--- NOTE | 2019-12-18 14:45 | Consultation ---
History of Present Illness General Date patient seen: Dec 18, 2019 Chief Complaint: Alcohol Intoxication Present Illness HPI 29 y/o F with hx of ETOH abuse presented to ED on 12/18/19 with nausea and vomiting after drinking a 6 pack of beer . She had a recent fall and hit her head a couple days prior to admission. Denied CP, SOB, focal weakness, abd pain, hematemesis, diarrhea, f/c, dysuria. Allergies: Coded Allergies: No Known Allergies (Unverified , 07/03/19) Medication History Scheduled Famotidine* (Pepcid 20mg tablet*), 20 MG ORAL TWICE A DAY Quetiapine Fumarate (Seroquel), 300 MG ORAL DAILY, (Reported) Scheduled PRN Ondansetron (Zofran), 4 MG ORAL Q8H PRN for Nausea & Vomiting Ondansetron (Zofran), 4 MG ORAL Q8H PRN for Nausea & Vomiting Patient History Healthcare decision maker Resuscitation status Advanced Directive on File Patient History Narrative Pmhx: as above Shx: reviewed Fhx: non contributory Review of Systems All Other Systems: negative except mentioned in HPI Physical Exam Physical Exam Narrative General Appearance: alert Head: other - Scattered ecchymosis and hematomas to patient's forehead Eyes: bilateral eye normal inspection, bilateral eye PERRL ENT: hearing grossly normal, normal pharynx, no angioedema, normal voice Neck: full range of motion, supple/symm/no masses Respiratory: chest non-tender, lungs clear, normal breath sounds, speaking full sentences Cardiovascular #1: regular rate, rhythm, no edema Gastrointestinal: normal bowel sounds, non tender, soft, non-distended, no guarding, no rebound Skin: no rash Last 24 Hour Vital Signs Date Time Temp Pulse Resp B/P (MAP) Pulse Ox O2 Delivery O2 Flow Rate FiO2 12/18/19 12:00 80 12/18/19 12:00 Room Air 12/18/19 12:00 98.6 79 18 130/90 (103) 96 12/18/19 11:47 79 18 130/90 96 12/18/19 11:17 78 20 122/89 99 12/18/19 09:19 Room Air 12/18/19 08:00 92 12/18/19 08:00 97.5 87 18 128/85 (99) 100 12/18/19 07:15 98.1 78 20 122/89 99 Room Air 12/18/19 07:15 98.1 78 20 122/89 99 Room Air 12/18/19 06:17 97.8 85 20 128/92 99 Room Air 12/18/19 04:47 87 20 138/76 97 12/18/19 04:15 87 20 139/78 98 12/18/19 03:50 98 24 Room Air 12/18/19 03:50 98.2 98 24 148/95 98 Room Air 12/18/19 03:45 98.2 120 25 148/95 (112) 100 Room Air 12/18/19 03:45 133 24 148/95 98 Intake and Output 12/17/19 12/18/19 19:00 07:00 Intake Total 1000 ml Balance 1000 ml IV Total 1000 ml Laboratory Tests Test 12/18/19 03:42 12/18/19 03:43 12/18/19 04:04 12/18/19 04:50 Venous Blood pH 7.519 Venous Blood Partial Pressure CO2 19.9 Venous Blood Partial Pressure O2 16.1 Venous Blood HCO3 15.8 Venous Blood Total Carbon Dioxide 19.9 Venous Blood Base Excess -4.5 Venous Blood Carboxyhemoglobin 0.3 % (0.5-1.5) L Methemoglobin 2.3 White Blood Count 24.0 K/UL (4.8-10.8) *H Red Blood Count 4.62 M/UL (4.20-5.40) Hemoglobin 15.7 G/DL (12.0-16.0) Hematocrit 42.8 % (37.0-47.0) Mean Corpuscular Volume 93 FL (80-99) Mean Corpuscular Hemoglobin 34.1 PG (27.0-31.0) H Mean Corpuscular Hemoglobin Concent 36.8 G/DL (32.0-36.0) H Red Cell Distribution Width 10.5 % (11.6-14.8) L Platelet Count 314 K/UL (150-450) Mean Platelet Volume 5.1 FL (6.5-10.1) L Neutrophils (%) (Auto) % (45.0-75.0) Lymphocytes (%) (Auto) % (20.0-45.0) Monocytes (%) (Auto) % (1.0-10.0) Eosinophils (%) (Auto) % (0.0-3.0) Basophils (%) (Auto) % (0.0-2.0) Differential Total Cells Counted 100 Neutrophils % (Manual) 88 % (45-75) H Lymphocytes % (Manual) 7 % (20-45) L Monocytes % (Manual) 5 % (1-10) Eosinophils % (Manual) 0 % (0-3) Basophils % (Manual) 0 % (0-2) Band Neutrophils 0 % (0-8) Platelet Estimate Adequate Platelet Morphology Normal Prothrombin Time 11.3 SEC (9.30-11.50) Prothromb Time International Ratio 1.0 (0.9-1.1) Activated Partial Thromboplast Time 24 SEC (23-33) Sodium Level 142 MMOL/L (136-145) Potassium Level 3.2 MMOL/L (3.5-5.1) L Chloride Level 99 MMOL/L (98-107) Carbon Dioxide Level 21 MMOL/L (21-32) Anion Gap 22 mmol/L (5-15) H Blood Urea Nitrogen 10 mg/dL (7-18) Creatinine 1.2 MG/DL (0.55-1.30) Estimat Glomerular Filtration Rate 52.4 mL/min (>60) Glucose Level 213 MG/DL (74-106) H Calcium Level 9.8 MG/DL (8.5-10.1) Magnesium Level 1.3 MG/DL (1.8-2.4) L Total Bilirubin 2.3 MG/DL (0.2-1.0) H Direct Bilirubin 0.5 MG/DL (0.0-0.3) H Aspartate Amino Transf (AST/SGOT) 50 U/L (15-37) H Alanine Aminotransferase (ALT/SGPT) 48 U/L (12-78) Alkaline Phosphatase 54 U/L (46-116) Total Protein 9.0 G/DL (6.4-8.2) H Albumin 5.3 G/DL (3.4-5.0) H Globulin 3.7 g/dL Albumin/Globulin Ratio 1.4 (1.0-2.7) Lipase 83 U/L (73-393) Lactic Acid Level 6.30 mmol/L (0.4-2.0) H 4.10 mmol/L (0.66-2.22) H Test 9/11/20 05:20 Urine Color Yellow Urine Appearance Clear Urine pH 6 (4.5-8.0) Urine Specific [place] 1.015 (1.005-1.035) Urine Protein 2+ (NEGATIVE) H Urine Glucose (UA) Negative (NEGATIVE) Urine Ketones 4+ (NEGATIVE) H Urine Blood 2+ (NEGATIVE) H Urine Nitrite Positive (NEGATIVE) H Urine Bilirubin Negative (NEGATIVE) Urine Urobilinogen 1 MG/DL (0.0-1.0) H Urine Leukocyte Esterase 1+ (NEGATIVE) H Urine RBC 2-4 /HPF (0 - 2) H Urine WBC 0-2 /HPF (0 - 2) Urine Squamous Epithelial Cells Many /LPF (NONE/OCC) H Urine Bacteria Few /HPF (NONE) Urine HCG, Qualitative Negative (NEGATIVE) Urine Opiates Screen Negative (NEGATIVE) Urine Barbiturates Screen Negative (NEGATIVE) Phencyclidine (PCP) Screen Negative (NEGATIVE) Urine Amphetamines Screen Negative (NEGATIVE) Urine Benzodiazepines Screen Negative (NEGATIVE) Urine Cocaine Screen Negative (NEGATIVE) Urine Marijuana (THC) Screen Negative (NEGATIVE) Microbiology Date/Time Source Procedure Growth Status 12/18/19 04:50 Nasopharynx SARS-CoV-2 RdRp Gene Assay - Final Complete Height (Feet): 5 Height (Inches): 9.00 Weight (Pounds): 119 Medications Current Medications Medications (Trade) Dose Ordered Sig/Gil Route PRN Reason Start Time Stop Time Status Last Admin Dose Admin Acetaminophen (Tylenol) 650 mg Q4H PRN ORAL fever (T>100.5) 12/18/19 08:30 01/17/20 08:29 Chlordiazepoxide (Librium) 25 mg Q6H ORAL 12/18/19 12:00 12/25/19 08:29 12/18/19 11:17 Dextrose (Dextrose 50%) 25 ml Q30M PRN IV Hypoglycemia 12/18/19 08:30 03/17/20 08:29 Dextrose (Dextrose 50%) 50 ml Q30M PRN IV Hypoglycemia 12/18/19 08:30 03/17/20 08:29 Folic Acid 1 mg/ Magnesium Sulfate 2000 mg/ Multivitamins 10 ml/Potassium Chloride/Sodium Chloride 1,014.2 ml @ 124.876 mls/hr Q24H IV 12/19/19 09:00 01/18/20 08:59 Heparin Sodium (Porcine) (Heparin 5000 units/ml) 5,000 units EVERY 12 HOURS SUBQ 12/18/19 09:00 02/01/20 08:59 Lorazepam (Ativan 2mg/ml 1ml) 1 mg Q2H PRN IV For Anxiety 12/18/19 10:00 12/25/19 09:59 12/18/19 11:17 Lorazepam (Ativan 2mg/ml 1ml) 1 mg Q2H PRN IV restlessness 12/18/19 10:45 12/25/19 10:44 Lorazepam (Ativan 2mg/ml 1ml) 1 mg Q2H PRN IV shaking 12/18/19 10:45 12/25/19 10:44 Ondansetron HCl (Zofran) 4 mg Q6H PRN IVP Nausea & Vomiting 12/18/19 08:30 01/17/20 08:29 12/18/19 09:11 Piperacillin Sod/ Tazobactam Sod 3.375 gm/Sodium Chloride 110 ml @ 27.5 mls/hr Q8HR@0100,0900,1700 IVPB 12/18/19 09:00 12/25/19 08:59 12/18/19 09:25 Polyethylene Glycol (Miralax) 17 gm HSPRN PRN ORAL Constipation 12/18/19 08:30 01/17/20 08:29 Thiamine HCl 100 mg/Dextrose 56 ml @ 112 mls/hr Q24H IVPB 12/19/19 09:00 01/18/20 08:59 Zolpidem Tartrate (Ambien) 5 mg HSPRN PRN ORAL Insomnia 12/18/19 08:30 12/25/19 08:29 Assessment/Plan Assessment/Plan: Abx: IV Vancomycin x1 12/17 IV Amikacin x1 12/17 Cefepime x1 12/17 Zosyn 12/17- Assessment: COVID19 neg x1 (12/07 rapid COVID PCR neg) Sepsis vs SIRS Afebrile Leukocytosis- likely reactive Lactic acidosis -12/17 u/a wbc 0-2, nit +, leuk +2; ucx p (no UTI symptoms) CXR : no acute process Nausea/vomiting- from alcohol intoxication R infected ear piercing- furuncle recent fall -head CT: No evidence of acute intracranial process. Paranasal sinuses and mastoids are clear. AST elevation, mild UDS neg ETOH abuse Plan: -Switch Zosyn #1 to PO bactrim #/7 -f/u cx -Monitor CBC/CMP, temperatures -warm compresses on R ear Thank you for this consultation. Will continue to follow along with you. Discussed with Tracy Calderon M.D. Dec 18, 2019 14:45
--- NOTE | 2019-12-18 16:03 | Diagnostic Imaging Report ---
Indication: Chest pain Technique: One view of the chest Comparison: none Findings: Lungs and pleural spaces are clear. Heart size is normal. Impression: No acute process
--- NOTE | 2019-12-18 19:18 | NUR ---
NURSE HAND-OFF REPORT: Important Events on Shift: new admission, ETOH withdrawal Patient Status: fair Diet: Regular Pending Orders: n/a Pending Results/Labs:AM lab Pending MD notification: n/a Latest Vital Signs: Temperature 98.2 , Pulse 76 , B/P 135 /94 , Respiratory Rate 18 , O2 SAT 100 , Room Air, O2 Flow Rate . Vital Sign Comment: EKG Rhythm: Sinus Rhythm Rhythm change?: N MD Notified?: - MD Response: Latest Zuniga Fall Score: 35 Fall Risk: Medium Risk Safety Measures: Call light Within Reach, Bed Alarm Zone 1, Side Rails Side Rails x2, Bed position Low and Locked. Fall Precautions: Yellow Socks Patient Fall Education Report given to LEXUS Humphrey
--- NOTE | 2019-12-18 19:25 | NUR ---
NURSE NOTES: Report received from LEXUS Chamorro. Observed pt lying in the bed, A/O x4, denies any pain at this time, no acute distress noted at this time. SR on receiving associate. On room air with no SOB. IV on R AC 20 G, SL, asymptomatic. Bed in the lowest position. Side rails up x3. Call light within reach. Will continue to monitor.
[2019-12-18] MEDS: Bactrim-DS 1 tab ORAL SCH (21:18)
--- NOTE | 2019-12-18 21:40 | History & Physical ---
History and Physical History & Physicial Cb Quintana MD Dec 18, 2019 21:40
[2019-12-19] VITALS (7 sets, daily range): BP systolic 121–147; BP diastolic 87–101
--- NOTE | 2019-12-19 | History and Physical Report ---
DATE OF ADMISSION: 12/18/2019 CHIEF COMPLAINT: Nausea and vomiting. HISTORY OF PRESENT ILLNESS: This is a 29-year-old female with past medical history significant for alcoholism who presented to the emergency department complaining about nausea and vomiting since yesterday. She stated that she usually gets episodes of nausea and vomiting, stops drinking, her symptoms improve. Then, she goes back and start drinking again. She stated that she is consuming a lot of alcohol daily, wine, hard liquor, beer. Last drink was around 5 hours prior to ER visit. The patient is having nausea and vomiting and shaking. She falls frequently and hit her head a couple days ago. She denies any chest pain or shortness of breath. Denies any loss of consciousness or double vision. She denies any hematuria, hematochezia, hemoptysis. Denies any abdominal pain, diarrhea, or shortness of breath. Denies any fever or chills. Shortly after initial evaluation in the emergency department, the patient was noted to have elevated WBC of 24.0 and subsequently the patient was admitted to the hospital with leukocytosis, possible early sepsis versus SIRS as well as hypokalemia and dehydration. PAST MEDICAL HISTORY/PAST SURGICAL HISTORY: As above history of alcoholism, depression especially worsening after her mom 5 years ago. The patient denies any anxiety or panic attacks. MEDICATIONS: At home is none. ALLERGIES: No known drug allergies. SOCIAL HISTORY: The patient denies any smoking substance however she consumes lot of alcohol. She denies any IV drug abuse. PHYSICAL EXAMINATION: VITAL SIGNS: On admission from the emergency department, temperature of 98.2, pulse of 133, respirations 24, blood pressure 148/95, repeat pulse is 87 and blood pressure 139/78. GENERAL: The patient awake and responsive, no acute distress. HEAD AND NECK: Pupils are equal and reactive to light. Extraocular muscles intact. Neck was supple. No JVD. LUNGS: Good air entry. No wheezing or rales. HEART: S1, S2. Regular rhythm. No gallops. ABDOMEN: Soft, nontender, nondistended. Positive bowel sounds. EXTREMITIES: No cyanosis, clubbing, or edema. NEUROLOGIC: Cranial nerves II through XII grossly intact. Motor 5/5 in all extremities. Gait was not assessed due to patient's status . RECTAL: Refused and deferred. GENITOURINARY: Refused and deferred. PSYCHIATRIC: Mood and affect is depressed. LABORATORY AND DIAGNOSTIC DATA: Laboratory on admission, WBC of 24.0, hemoglobin 15, hematocrit 42, and platelets is 314. ABG, 7.519, pCO2 of 19, pO2 of 16, this is venous ABG. Sodium 142, potassium 3.2, chloride 99, bicarb 21, BUN 10, creatinine 1.2, and glucose is 213. Lactic acid is 6.3, repeat one is 4.10. Magnesium is 1.3. Total bilirubin of 2.3, direct bilirubin of 0.5, AST of 50, ALT of 48, alkaline phosphatase 54. Lipase is 83. Urine drug screen is negative. Urinalysis +2 protein, negative glucose, +4 ketone, positive nitrite, 0 to 2 wbc's. Negative beta-HCG. PT of 11, INR 1.0, PTT of 24. The patient has COVID-19 test, rapid COVID-[address] of the head, no evidence of acute intracranial process. Paranasal sinuses and mastoids are clear. Chest x-ray, no acute process. ASSESSMENT: 1. Leukocytosis, possible early sepsis versus SIRS. 2. Alcoholism with alcohol withdrawal. 3. Hypokalemia. 4. Hypomagnesemia. 5. Depression. 6. Dehydration. 7. Intractable and nausea vomiting possible due to alcohol induced. PLAN: Admit patient to monitored unit. We will follow up with Dr. Spence, Pulmonary Critical Care as well as Dr. Hall from Infectious Disease. The patient currently on Zosyn, was switched to Bactrim as per Dr. Hall. Aggressive IV hydration, magnesium IV and potassium supplements. Followup with the withdrawal precaution. Code status is Full code. DVT prophylaxis with heparin subcutaneous. Cb Quintana M.D. DR: Milagro JOB#: [id number] CC:
--- NOTE | 2019-12-19 00:30 | NUR ---
NURSE NOTES: pt c/o n/v and insomnia. PRN meds given. VS WNL. Will continue to monitor.
[2019-12-19] MEDS ORDERED: FAMOTIDINE20 MG ORAL (00:50)
[2019-12-19] MEDS ORDERED: COREG6.25 MG ORAL (00:51)
[2019-12-19] MEDS ORDERED: ARICEPT5 MG ORAL (00:52)
[2019-12-19] MEDS ORDERED: ASPIRIN-LOW81 MG ORAL (00:53)
[2019-12-19] MEDS ORDERED: ATORVASTATIN CA10 MG ORAL (00:56)
[2019-12-19] MEDS ORDERED: HYDRALAZINE HCL25 M1 ORAL (00:59)
[2019-12-19] MEDS ORDERED: HUMULIN R100 UNIT/1 SUBQ (01:04)
--- NOTE | 2019-12-19 03:56 | NUR ---
NURSE NOTES: Pt refused AM lab draw. Pt said she will have it in the morning after 0700, research phlebotomist notified. Will continue to monitor.
[2019-12-19] MEDS ORDERED: Vancomycin 1gm/D5W 275ml IVPB SCH ×2 (06:00)
[2019-12-19] MEDS: chlordiazePOXIDE 25mg Cap ORAL SCH ×3 (06:02→18:00)
--- NOTE | 2019-12-19 07:17 | NUR ---
NURSE HAND-OFF REPORT: Important Events on Shift: Pt having trouble sleeping. Patient Status: stable Diet: regular Pending Orders: n Pending Results/Labs: pt refused am lab, will be drawn in the morning. Pending MD notification:n Latest Vital Signs: Temperature 98.1 , Pulse 69 , B/P 132 /92 , Respiratory Rate 20 , O2 SAT 100 , Room Air, O2 Flow Rate . Vital Sign Comment: [] EKG Rhythm: Sinus Rhythm Rhythm change?: N MD Notified?: - MD Response: Latest Zuniga Fall Score: 35 Fall Risk: Medium Risk Safety Measures: Call light Within Reach, Bed Alarm Zone 1, Side Rails Side Rails x2, Bed position Low and Locked. Fall Precautions: Yellow Socks Patient Fall Education Report given to LEXUS Macrh.
--- NOTE | 2019-12-19 07:28 | NUR ---
NURSE NOTES: Received pt from LEXUS Humphrey. Pt is comfortably sitting in bed, not in resp. distress. in RA, SR in the monitor, IV in R AC G20 intact, no significant event from previous shift. Will cont. with plan of care.
--- NOTE | 2019-12-19 08:26 | Pulmonology Progress Note ---
Subjective ROS Limited/Unobtainable: No Constitutional: Reports: no symptoms HEENT: Repors: no symptoms Allergies: Coded Allergies: No Known Allergies (Unverified , 07/03/19) Objective Last 24 Hour Vital Signs Date Time Temp Pulse Resp B/P (MAP) Pulse Ox O2 Delivery O2 Flow Rate FiO2 12/19/19 04:00 Room Air 12/19/19 04:00 80 12/19/19 04:00 98.1 69 20 132/92 (105) 100 12/19/19 00:00 98.1 73 20 130/91 (104) 98 12/19/19 00:00 74 12/19/19 00:00 Room Air 12/18/19 20:00 97.7 78 18 144/94 (111) 100 12/18/19 20:00 84 12/18/19 20:00 Room Air 12/18/19 16:00 Room Air 12/18/19 16:00 98.2 76 18 135/94 (108) 100 12/18/19 16:00 84 12/18/19 12:00 80 12/18/19 12:00 Room Air 12/18/19 12:00 98.6 79 18 130/90 (103) 96 12/18/19 11:47 79 18 130/90 96 12/18/19 11:17 78 20 122/89 99 12/18/19 09:19 Room Air Intake and Output 12/18/19 12/19/19 19:00 07:00 Intake Total 350 ml 200 ml Balance 350 ml 200 ml Intake Oral 350 ml 200 ml # Voids 1 1 General Appearance: no acute distress HEENT: normocephalic, atraumatic Respiratory: chest wall non-tender, lungs clear, normal breath sounds Breasts: no masses Cardiovascular: normal peripheral pulses, normal rate Abdomen: normal bowel sounds, soft, non tender, no organomegaly Genitourinary: normal external genitalia Microbiology Date/Time Source Procedure Growth Status 12/18/19 04:50 Nasopharynx SARS-CoV-2 RdRp Gene Assay - Final Complete Current Medications Medications (Trade) Dose Ordered Sig/Gil Route PRN Reason Start Time Stop Time Status Last Admin Dose Admin Acetaminophen (Tylenol) 650 mg Q4H PRN ORAL fever (T>100.5) 12/18/19 08:30 01/17/20 08:29 Chlordiazepoxide (Librium) 25 mg Q6H ORAL 12/18/19 12:00 12/25/19 08:29 12/19/19 06:02 Dextrose (Dextrose 50%) 25 ml Q30M PRN IV Hypoglycemia 12/18/19 08:30 03/17/20 08:29 Dextrose (Dextrose 50%) 50 ml Q30M PRN IV Hypoglycemia 12/18/19 08:30 03/17/20 08:29 Folic Acid 1 mg/ Magnesium Sulfate 2000 mg/ Multivitamins 10 ml/Potassium Chloride/Sodium Chloride 1,014.2 ml @ 124.876 mls/hr Q24H IV 12/19/19 09:00 01/18/20 08:59 Heparin Sodium (Porcine) (Heparin 5000 units/ml) 5,000 units EVERY 12 HOURS SUBQ 12/18/19 09:00 02/01/20 08:59 12/18/19 21:20 Lorazepam (Ativan 2mg/ml 1ml) 1 mg Q2H PRN IV For Anxiety 12/18/19 10:00 12/25/19 09:59 12/18/19 11:17 Lorazepam (Ativan 2mg/ml 1ml) 1 mg Q2H PRN IV restlessness 12/18/19 10:45 12/25/19 10:44 Lorazepam (Ativan 2mg/ml 1ml) 1 mg Q2H PRN IV shaking 12/18/19 10:45 12/25/19 10:44 Ondansetron HCl (Zofran) 4 mg Q6H PRN IVP Nausea & Vomiting 12/18/19 08:30 01/17/20 08:29 12/18/19 21:18 Polyethylene Glycol (Miralax) 17 gm HSPRN PRN ORAL Constipation 12/18/19 08:30 01/17/20 08:29 Thiamine HCl 100 mg/Dextrose 56 ml @ 112 mls/hr Q24H IVPB 12/19/19 09:00 01/18/20 08:59 Trimethoprim/ Sulfamethoxazole (Bactrim-DS) 1 tab Q12HR ORAL 12/18/19 21:00 12/25/19 20:59 12/18/19 21:18 Zolpidem Tartrate (Ambien) 5 mg HSPRN PRN ORAL Insomnia 12/18/19 08:30 12/25/19 08:29 12/19/19 00:24 Assessment/Plan Problems: (1) Alcohol withdrawal (2) ETOH abuse (3) UTI (urinary tract infection) Assessment/Plan iv abx check cultures f/u wbc librium prin dvt prophylaxis. Eugenia Spence MD Dec 19, 2019 08:26
[2019-12-19] MEDS ORDERED: Folic Acid 1 MG, Magnesium Sulfate 2,000 MG, Multivitamin - 12 Injection 10 ML in NS w/... IV SCH (09:00)
[2019-12-19] MEDS: Heparin 5000 units/ml inj SUBQ SCH ×2 (09:33→20:46)
[2019-12-19] MEDS: Bactrim-DS 1 tab ORAL SCH ×2 (09:33→20:31)
[2019-12-19 09:46] LABS: BASOPHILS % (AUTO) 0.8 % (0.0-2.0); EOSINOPHILS % (AUTO) 1.1 % (0.0-3.0); HEMATOCRIT 39.5 % (37.0-47.0); HEMOGLOBIN 14.6 G/DL (12.0-16.0); LYMPHOCYTES % (AUTO) 25.8 % (20.0-45.0); MEAN CORPUSCULAR VOLUME 92 FL (80-99); MONOCYTES % (AUTO) 5.3 % (1.0-10.0); NEUTROPHILS % (AUTO) 67.1 % (45.0-75.0); PLATELET COUNT 152 K/UL (150-450); RED BLOOD COUNT 4.27 M/UL (4.20-5.40); RED CELL DISTRIBUTION WIDTH 10.3 % (11.6-14.8); WHITE BLOOD COUNT 7.4 K/UL (4.8-10.8)
[2019-12-19] MEDS: Thiamine 100mg IVPB (Q24H) IVPB SCH ×2 (09:47)
--- NOTE | 2019-12-19 10:04 | NUR ---
NURSE NOTES: Called Dr. Spence [phone], and left a message regarding Pt change of rhythm SR --> AJR. Pt asymptomatic. Awaiting for response.
[2019-12-19 10:07] LABS: PHOSPHORUS 2.6 MG/DL (2.5-4.9)
[2019-12-19 10:13] LABS: ALANINE AMINOTRANSFERASE 50 U/L (12-78); ALBUMIN 4.4 G/DL (3.4-5.0); ALBUMIN/GLOBULIN RATIO 1.3 (1.0-2.7); ALKALINE PHOSPHATASE 39 U/L (46-116); ANION GAP 11 mmol/L (5-15); ASPARTATE AMINO TRANSFERASE 60 U/L (15-37); BILIRUBIN,TOTAL 1.4 MG/DL (0.2-1.0); BLOOD UREA NITROGEN 4 mg/dL (7-18); CALCIUM 9.3 MG/DL (8.5-10.1); CARBON DIOXIDE 27 MMOL/L (21-32); CHLORIDE 102 MMOL/L (98-107); CREATININE 0.7 MG/DL (0.55-1.30); POTASSIUM 3.2 MMOL/L (3.5-5.1); SODIUM 140 MMOL/L (136-145)
[2019-12-19 10:14] LABS: BILIRUBIN,DIRECT 0.3 MG/DL (0.0-0.3)
--- NOTE | 2019-12-19 13:42 | NUR ---
CASE MANAGEMENT:REVIEW SI;LEUKOCYTOSIS. ETOH WITHDRAWAL. HYPOKALEMIA. 98.6 80 20 144/94 98% ON RA ESR 24 K+ 3.2 T-BILI 1.4 AST 60 ALP 39 CRP 1.9 IS;THIAMINE IV Q24 BACTRIM DS PO Q12 LIBRIUM PO Q6 HEPARINS SUBQ Q12 FOLIC ACID/MAG SULF/KCL IV Q24 MARCIAL STATUS DCP;FROM HOME
--- NOTE | 2019-12-19 14:10 | NUR ---
NURSE NOTES: Transfered pt to room 303-1, in stable condition. Gave report to LEXUS Crews.
--- NOTE | 2019-12-19 14:15 | NUR ---
NURSE NOTES: Patient arrived safely from 2W to 3E via hospital bed. Patient is awake and alert, no signs of distress, anxiety noted. Patient states that she is eager to go home. Right AC IV is leaking and painful, will insert new IV. Vital signs are stable. Bed is low and locked, side rails up x2, call light is within reach.
--- NOTE | 2019-12-19 14:53 | Internal Med Progress Note ---
Subjective Date of Service: Dec 19, 2019 Physician Name CrissJoey Attending Physician Cb Quintana MD Current Medications Medications (Trade) Dose Ordered Sig/Gil Route PRN Reason Start Time Stop Time Status Last Admin Dose Admin Acetaminophen (Tylenol) 650 mg Q4H PRN ORAL fever (T>100.5) 12/18/19 08:30 01/17/20 08:29 Chlordiazepoxide (Librium) 25 mg Q6H ORAL 12/18/19 12:00 12/25/19 08:29 12/19/19 11:46 Dextrose (Dextrose 50%) 25 ml Q30M PRN IV Hypoglycemia 12/18/19 08:30 03/17/20 08:29 Dextrose (Dextrose 50%) 50 ml Q30M PRN IV Hypoglycemia 12/18/19 08:30 03/17/20 08:29 Folic Acid 1 mg/ Magnesium Sulfate 2000 mg/ Multivitamins 10 ml/Potassium Chloride/Sodium Chloride 1,014.2 ml @ 124.876 mls/hr Q24H IV 12/19/19 09:00 01/18/20 08:59 12/19/19 09:32 Heparin Sodium (Porcine) (Heparin 5000 units/ml) 5,000 units EVERY 12 HOURS SUBQ 12/18/19 09:00 02/01/20 08:59 12/19/19 09:33 Lorazepam (Ativan 2mg/ml 1ml) 1 mg Q2H PRN IV For Anxiety 12/18/19 10:00 12/25/19 09:59 12/18/19 11:17 Lorazepam (Ativan 2mg/ml 1ml) 1 mg Q2H PRN IV restlessness 12/18/19 10:45 12/25/19 10:44 Lorazepam (Ativan 2mg/ml 1ml) 1 mg Q2H PRN IV shaking 12/18/19 10:45 12/25/19 10:44 Ondansetron HCl (Zofran) 4 mg Q6H PRN IVP Nausea & Vomiting 12/18/19 08:30 01/17/20 08:29 12/18/19 21:18 Polyethylene Glycol (Miralax) 17 gm HSPRN PRN ORAL Constipation 12/18/19 08:30 01/17/20 08:29 Thiamine HCl 100 mg/Dextrose 56 ml @ 112 mls/hr Q24H IVPB 12/19/19 09:00 01/18/20 08:59 12/19/19 09:47 Trimethoprim/ Sulfamethoxazole (Bactrim-DS) 1 tab Q12HR ORAL 12/18/19 21:00 12/25/19 20:59 12/19/19 09:33 Zolpidem Tartrate (Ambien) 5 mg HSPRN PRN ORAL Insomnia 12/18/19 08:30 12/25/19 08:29 12/19/19 00:24 Allergies: Coded Allergies: No Known Allergies (Unverified , 07/03/19) ROS Limited/Unobtainable: No Constitutional: Reports: no symptoms HEENT: Reports: no symptoms Cardiovascular: Reports: no symptoms Respiratory: Reports: no symptoms Gastrointestinal/Abdominal: Reports: nausea, vomiting Genitourinary: Reports: no symptoms Neurologic/Psychiatric: Reports: tremors Subjective 29 YO F admited with nausea and vomiting. Now acute alcohol withdrawal. Cover for Int Med-DR Quintana Objective Last Vital Signs Date Time Temp Pulse Resp B/P (MAP) Pulse Ox O2 Delivery O2 Flow Rate FiO2 12/19/19 12:00 85 12/19/19 12:00 Room Air 12/19/19 12:00 98.6 20 140/89 (106) 100 Laboratory Tests Test 12/19/19 09:05 White Blood Count 7.4 K/UL (4.8-10.8) # Red Blood Count 4.27 M/UL (4.20-5.40) Hemoglobin 14.6 G/DL (12.0-16.0) Hematocrit 39.5 % (37.0-47.0) Mean Corpuscular Volume 92 FL (80-99) Mean Corpuscular Hemoglobin 34.3 PG (27.0-31.0) H Mean Corpuscular Hemoglobin Concent 37.0 G/DL (32.0-36.0) H Red Cell Distribution Width 10.3 % (11.6-14.8) L Platelet Count 152 K/UL (150-450) # Mean Platelet Volume 5.2 FL (6.5-10.1) L Neutrophils (%) (Auto) 67.1 % (45.0-75.0) Lymphocytes (%) (Auto) 25.8 % (20.0-45.0) Monocytes (%) (Auto) 5.3 % (1.0-10.0) Eosinophils (%) (Auto) 1.1 % (0.0-3.0) Basophils (%) (Auto) 0.8 % (0.0-2.0) Erythrocyte Sedimentation Rate 21 MM/HR (0-20) H Sodium Level 140 MMOL/L (136-145) Potassium Level 3.2 MMOL/L (3.5-5.1) L Chloride Level 102 MMOL/L (98-107) Carbon Dioxide Level 27 MMOL/L (21-32) Anion Gap 11 mmol/L (5-15) Blood Urea Nitrogen 4 mg/dL (7-18) L Creatinine 0.7 MG/DL (0.55-1.30) Estimat Glomerular Filtration Rate > 60 mL/min (>60) Glucose Level 87 MG/DL (74-106) # Calcium Level 9.3 MG/DL (8.5-10.1) Phosphorus Level 2.6 MG/DL (2.5-4.9) Magnesium Level 2.4 MG/DL (1.8-2.4) Total Bilirubin 1.4 MG/DL (0.2-1.0) H Direct Bilirubin 0.3 MG/DL (0.0-0.3) Aspartate Amino Transf (AST/SGOT) 60 U/L (15-37) H Alanine Aminotransferase (ALT/SGPT) 50 U/L (12-78) Alkaline Phosphatase 39 U/L (46-116) L C-Reactive Protein, Quantitative 1.9 mg/dL (0.00-0.90) H Total Protein 7.9 G/DL (6.4-8.2) Albumin 4.4 G/DL (3.4-5.0) Globulin 3.5 g/dL Albumin/Globulin Ratio 1.3 (1.0-2.7) Rapid Plasma Reagin Pending HIV (1&2) Antibody Rapid Negative (NEGATIVE) Microbiology Date/Time Source Procedure Growth Status 12/18/19 04:50 Nasopharynx SARS-CoV-2 RdRp Gene Assay - Final Complete Intake and Output 12/18/19 12/19/19 19:00 07:00 Intake Total 350 ml 200 ml Balance 350 ml 200 ml Intake Oral 350 ml 200 ml # Voids 1 1 Objective PHYSICAL EXAMINATION: GENERAL: The patient awake and responsive, no acute distress. HEAD AND NECK: Pupils are equal and reactive to light. Extraocular muscles intact. Neck was supple. No JVD. LUNGS: Good air entry. No wheezing or rales. HEART: S1, S2. Regular rhythm. No gallops. ABDOMEN: Soft, nontender, nondistended. Positive bowel sounds. EXTREMITIES: No cyanosis, clubbing, or edema. NEUROLOGIC: Cranial nerves II through XII grossly intact. Motor 5/5 in all extremities. Gait was not assessed due to patient's status . RECTAL: Refused and deferred. GENITOURINARY: Refused and deferred. PSYCHIATRIC: Mood and affect is depressed. Assessment/Plan Assessment/Plan ASSESSMENT: 1. Leukocytosis, possible early sepsis versus SIRS. 2. Alcoholism with alcohol withdrawal. 3. Hypokalemia. 4. Hypomagnesemia. 5. Depression. 6. Dehydration. 7. Intractable and nausea vomiting possible due to alcohol induced. PLAN: 1. Admit patient to monitored unit. We will follow up with 2. =Pulmonary Critical Care 3. Dr. Hall = Infectious Disease. 4. S/P Zosyn, continue Bactrim as per Dr. Hall. 5. continue librium for alcohol withdrawal precaution. 6. Code status is Full code. 7. DVT prophylaxis with heparin subcutaneous. 8. CIWA= Joey Kahn MD Dec 19, 2019 14:53
[2019-12-19] MEDS: LORazepam Inj 2mg/ml 1ml IV PRN ×2 (16:44→20:47)
--- NOTE | 2019-12-19 16:47 | Infectious Diseases Prog Note ---
Assessment/Plan Assessment: COVID19 neg x1 (12/07 rapid COVID PCR neg) Sepsis vs SIRS Afebrile Leukocytosis, SP- reactive Lactic acidosis; improving -12/17 u/a wbc 0-2, nit +, leuk +2; ucx p (no UTI symptoms) CXR : no acute process Nausea/vomiting- from alcohol intoxication R infected ear piercing- furuncle recent fall -head CT: No evidence of acute intracranial process. Paranasal sinuses and mastoids are clear. AST elevation, mild- increasing JEANNINE, mild- SP UDS neg HIV ab screen neg ETOH abuse Plan: -Cont PO bactrim #2/7 -12/17 SP Zosyn #1, Cefepime x1, IV AMikacin x1, IV vancomycin x1 -f/u cx -Monitor CBC/CMP, temperatures -warm compresses on R ear Thank you for this consultation. Will continue to follow along with you. Discussed with RN. Subjective Allergies: Coded Allergies: No Known Allergies (Unverified , 07/03/19) afebrile at RA leukocytosis resolved Cr improved Objective Last 24 Hour Vital Signs Date Time Temp Pulse Resp B/P (MAP) Pulse Ox O2 Delivery O2 Flow Rate FiO2 12/19/19 14:20 Room Air 12/19/19 14:20 98.0 70 20 141/96 (111) 100 12/19/19 12:00 85 12/19/19 12:00 Room Air 12/19/19 12:00 98.6 76 20 140/89 (106) 100 12/19/19 08:00 98.6 78 20 121/87 (98) 100 12/19/19 08:00 Room Air 12/19/19 08:00 86 12/19/19 04:00 Room Air 12/19/19 04:00 80 12/19/19 04:00 98.1 69 20 132/92 (105) 100 12/19/19 00:00 98.1 73 20 130/91 (104) 98 12/19/19 00:00 74 12/19/19 00:00 Room Air 12/18/19 20:00 97.7 78 18 144/94 (111) 100 12/18/19 20:00 84 12/18/19 20:00 Room Air Height (Feet): 5 Height (Inches): 9.00 Weight (Pounds): 119 General Appearance: alert Head: other - Scattered ecchymosis and hematomas to patient's forehead Eyes: bilateral eye normal inspection, bilateral eye PERRL ENT: R pinna furuncle from infected piercing Neck: full range of motion, supple/symm/no masses Respiratory: chest non-tender, lungs clear, normal breath sounds, speaking full sentences Cardiovascular #1: regular rate, rhythm, no edema Gastrointestinal: normal bowel sounds, non tender, soft, non-distended, no guarding, no rebound Skin: no rash Microbiology Date/Time Source Procedure Growth Status 12/18/19 04:50 Nasopharynx SARS-CoV-2 RdRp Gene Assay - Final Complete Laboratory Tests Test 12/19/19 09:05 White Blood Count 7.4 K/UL (4.8-10.8) # Red Blood Count 4.27 M/UL (4.20-5.40) Hemoglobin 14.6 G/DL (12.0-16.0) Hematocrit 39.5 % (37.0-47.0) Mean Corpuscular Volume 92 FL (80-99) Mean Corpuscular Hemoglobin 34.3 PG (27.0-31.0) H Mean Corpuscular Hemoglobin Concent 37.0 G/DL (32.0-36.0) H Red Cell Distribution Width 10.3 % (11.6-14.8) L Platelet Count 152 K/UL (150-450) # Mean Platelet Volume 5.2 FL (6.5-10.1) L Neutrophils (%) (Auto) 67.1 % (45.0-75.0) Lymphocytes (%) (Auto) 25.8 % (20.0-45.0) Monocytes (%) (Auto) 5.3 % (1.0-10.0) Eosinophils (%) (Auto) 1.1 % (0.0-3.0) Basophils (%) (Auto) 0.8 % (0.0-2.0) Erythrocyte Sedimentation Rate 21 MM/HR (0-20) H Sodium Level 140 MMOL/L (136-145) Potassium Level 3.2 MMOL/L (3.5-5.1) L Chloride Level 102 MMOL/L (98-107) Carbon Dioxide Level 27 MMOL/L (21-32) Anion Gap 11 mmol/L (5-15) Blood Urea Nitrogen 4 mg/dL (7-18) L Creatinine 0.7 MG/DL (0.55-1.30) Estimat Glomerular Filtration Rate > 60 mL/min (>60) Glucose Level 87 MG/DL (74-106) # Calcium Level 9.3 MG/DL (8.5-10.1) Phosphorus Level 2.6 MG/DL (2.5-4.9) Magnesium Level 2.4 MG/DL (1.8-2.4) Total Bilirubin 1.4 MG/DL (0.2-1.0) H Direct Bilirubin 0.3 MG/DL (0.0-0.3) Aspartate Amino Transf (AST/SGOT) 60 U/L (15-37) H Alanine Aminotransferase (ALT/SGPT) 50 U/L (12-78) Alkaline Phosphatase 39 U/L (46-116) L C-Reactive Protein, Quantitative 1.9 mg/dL (0.00-0.90) H Total Protein 7.9 G/DL (6.4-8.2) Albumin 4.4 G/DL (3.4-5.0) Globulin 3.5 g/dL Albumin/Globulin Ratio 1.3 (1.0-2.7) Rapid Plasma Reagin Pending HIV (1&2) Antibody Rapid Negative (NEGATIVE) Current Medications Medications (Trade) Dose Ordered Sig/Gil Route PRN Reason Start Time Stop Time Status Last Admin Dose Admin Acetaminophen (Tylenol) 650 mg Q4H PRN ORAL fever (T>100.5) 12/18/19 08:30 01/17/20 08:29 Chlordiazepoxide (Librium) 25 mg Q6H ORAL 12/18/19 12:00 12/25/19 08:29 12/19/19 11:46 Dextrose (Dextrose 50%) 25 ml Q30M PRN IV Hypoglycemia 12/18/19 08:30 03/17/20 08:29 Dextrose (Dextrose 50%) 50 ml Q30M PRN IV Hypoglycemia 12/18/19 08:30 03/17/20 08:29 Folic Acid 1 mg/ Magnesium Sulfate 2000 mg/ Multivitamins 10 ml/Potassium Chloride/Sodium Chloride 1,014.2 ml @ 124.876 mls/hr Q24H IV 12/19/19 09:00 01/18/20 08:59 12/19/19 09:32 Heparin Sodium (Porcine) (Heparin 5000 units/ml) 5,000 units EVERY 12 HOURS SUBQ 12/18/19 09:00 02/01/20 08:59 12/19/19 09:33 Lorazepam (Ativan 2mg/ml 1ml) 1 mg Q2H PRN IV For Anxiety 12/18/19 10:00 12/25/19 09:59 12/18/19 11:17 Lorazepam (Ativan 2mg/ml 1ml) 1 mg Q2H PRN IV restlessness 12/18/19 10:45 12/25/19 10:44 Lorazepam (Ativan 2mg/ml 1ml) 1 mg Q2H PRN IV shaking 12/18/19 10:45 12/25/19 10:44 Ondansetron HCl (Zofran) 4 mg Q6H PRN IVP Nausea & Vomiting 12/18/19 08:30 01/17/20 08:29 12/18/19 21:18 Polyethylene Glycol (Miralax) 17 gm HSPRN PRN ORAL Constipation 12/18/19 08:30 01/17/20 08:29 Thiamine HCl 100 mg/Dextrose 56 ml @ 112 mls/hr Q24H IVPB 12/19/19 09:00 01/18/20 08:59 12/19/19 09:47 Trimethoprim/ Sulfamethoxazole (Bactrim-DS) 1 tab Q12HR ORAL 12/18/19 21:00 12/25/19 20:59 12/19/19 09:33 Zolpidem Tartrate (Ambien) 5 mg HSPRN PRN ORAL Insomnia 12/18/19 08:30 12/25/19 08:29 12/19/19 00:24 Tracy Hall M.D. Dec 19, 2019 16:47
--- NOTE | 2019-12-19 17:17 | NUR ---
[facility] /[facility] FAX CLINICALS TO [facility] MADINA BELLO P:[phone] F:[phone]
--- NOTE | 2019-12-19 19:10 | NUR ---
NURSE HAND-OFF: Important Events on Shift:[transfer to 3E] Patient Status: stable Diet: regular Pending Orders: cxray, labs Pending Results/Labs: Pending MD notification: Latest Vital Signs: Temperature 98.4 , Pulse 70 , B/P 141 /96 , Respiratory Rate 20 , O2 SAT 100 , Room Air, O2 Flow Rate . Vital Sign Comment: Latest Zuniga Fall Score: 35 Fall Risk: Medium Risk Safety Measures: Call light Within Reach, Bed Alarm Zone 1, Side Rails Side Rails x2, Bed position Low and Locked. Fall Precautions: Yellow Socks Patient Fall Education Report given to Suzan ALBERTS.
--- NOTE | 2019-12-19 19:20 | NUR ---
NURSE NOTES: Receive a report from LEXUS Crews. Round is done. Pt is asleep but easily aroused. Says that she is finally happy to sleep a little bit. No acute distress noted. Denies pain/dizziness. Call light within reach. Will continue to monitor.
--- NOTE | 2019-12-19 20:50 | NUR ---
NURSE NOTES: Noted PLT level decreased from 314K to 152K. Call Dr. Quintana for the result of PLT and confirm to give Heparin 5000U sc. Orders have been placed to check CBC and others tomorrow. Receive an order to hold Heparin tomorrow if PLT is below 100k. Read back order. Order noted and carried out.
[2019-12-20] VITALS: BP 113/73
[2019-12-20] MEDS: chlordiazePOXIDE 25mg Cap ORAL SCH ×3 (00:02→12:05)
[2019-12-20 04:00] VITALS: BP_SYST 100; BP_SYST 122; BP_DIAS 60; BP_DIAS 89
[2019-12-20 05:41] LABS: BASOPHILS % (AUTO) 1.1 % (0.0-2.0); EOSINOPHILS % (AUTO) 2.5 % (0.0-3.0); HEMATOCRIT 40.2 % (37.0-47.0); HEMOGLOBIN 14.8 G/DL (12.0-16.0); LYMPHOCYTES % (AUTO) 39.8 % (20.0-45.0); MEAN CORPUSCULAR VOLUME 92 FL (80-99); MONOCYTES % (AUTO) 5.9 % (1.0-10.0); NEUTROPHILS % (AUTO) 50.7 % (45.0-75.0); PLATELET COUNT 176 K/UL (150-450); RED BLOOD COUNT 4.35 M/UL (4.20-5.40); RED CELL DISTRIBUTION WIDTH 10.2 % (11.6-14.8); WHITE BLOOD COUNT 5.9 K/UL (4.8-10.8)
[2019-12-20 05:48] LABS: ALANINE AMINOTRANSFERASE 50 U/L (12-78); ALBUMIN 3.9 G/DL (3.4-5.0); ALBUMIN/GLOBULIN RATIO 1.2 (1.0-2.7); ALKALINE PHOSPHATASE 35 U/L (46-116); ANION GAP 14 mmol/L (5-15); ASPARTATE AMINO TRANSFERASE 52 U/L (15-37); BLOOD UREA NITROGEN 5 mg/dL (7-18); CALCIUM 8.8 MG/DL (8.5-10.1); CARBON DIOXIDE 22 MMOL/L (21-32); CHLORIDE 103 MMOL/L (98-107); CREATININE 0.7 MG/DL (0.55-1.30); PHOSPHORUS 3.5 MG/DL (2.5-4.9); POTASSIUM 3.4 MMOL/L (3.5-5.1); SODIUM 139 MMOL/L (136-145)
--- NOTE | 2019-12-20 06:21 | NUR ---
NURSE HAND-OFF: Important Events on Shift:[No acute distress/no tremors] Patient Status: [stable] Diet: [regular] Pending Orders: [] Pending Results/Labs:[multiple morning labs] Pending MD notification:[] Latest Vital Signs: Temperature 98.0 , Pulse 82 , B/P 122 /89 , Respiratory Rate 18 , O2 SAT 98 , Room Air, O2 Flow Rate . Vital Sign Comment: [] Latest Zuniga Fall Score: 35 Fall Risk: Medium Risk Safety Measures: Call light Within Reach, Bed Alarm Zone 1, Side Rails Side Rails x2, Bed position Low and Locked. Fall Precautions: Yellow Socks Patient Fall Education
--- NOTE | 2019-12-20 07:20 | NUR ---
HAND-OFF: Report given to LEXUS Crews. Round is done. Plan of care got discussed.
--- NOTE | 2019-12-20 07:28 | NUR ---
NURSE NOTES: Handoff received from [facility] RN. Patient is asleep, no signs of distress noted, breathing is even and unlabored on room air. Patient's right hand IV is intact and asymptomatic. Bed is low and locked, side rails are up x2, call light is within reach.
[2019-12-20 08:00] VITALS: BP 125/91
[2019-12-20] MEDS: Heparin 5000 units/ml inj SUBQ SCH ×2 (09:00→09:04)
[2019-12-20] MEDS: Bactrim-DS 1 tab ORAL SCH (09:02)
[2019-12-20] MEDS: Thiamine 100mg IVPB (Q24H) IVPB SCH ×2 (09:04)
--- NOTE | 2019-12-20 09:26 | Diagnostic Imaging Report ---
EXAM: XR Chest, 1 View CLINICAL HISTORY: DYSPNEA TECHNIQUE: Frontal view of the chest. COMPARISON: No relevant prior studies available. FINDINGS: Lungs: Unremarkable. No consolidation. Pleural space: Unremarkable. No pneumothorax. Heart: Unremarkable. No cardiomegaly. Mediastinum: Unremarkable. Bones/joints: Unremarkable. IMPRESSION: No focal infiltrate.
[2019-12-20 12:00] VITALS: BP 119/97
--- NOTE | 2019-12-20 14:30 | NUR ---
NURSE NOTES: Patient safely discharged from to home via private vehicle. Patient was accompanied by spouse. Patient's belongings list was verified and signed by patient, questions and concerns were addressed, IV and ID wristband were removed prescription was provided. Patient is to follow up with her primary care doctor.
[2019-12-20] MEDS ORDERED: NS 275ml ONE (14:42)
[2019-12-20] MEDS ORDERED: Tubing IV Secondary IV ONE ×2 (14:42)
--- NOTE | 2019-12-20 16:07 | Internal Med Progress Note ---
Subjective Date of Service: Dec 20, 2019 Physician Name Joey Kahn Attending Physician Cb Quintana MD Allergies: Coded Allergies: No Known Allergies (Unverified , 07/03/19) ROS Limited/Unobtainable: No Constitutional: Reports: no symptoms HEENT: Reports: no symptoms Cardiovascular: Reports: no symptoms Respiratory: Reports: no symptoms Gastrointestinal/Abdominal: Reports: no symptoms Genitourinary: Reports: no symptoms Neurologic/Psychiatric: Reports: no symptoms Subjective 29 YO F admited with nausea and vomiting. Now acute alcohol withdrawal. Cover for Int Med-DR Quintana Objective Last Vital Signs Date Time Temp Pulse Resp B/P (MAP) Pulse Ox O2 Delivery O2 Flow Rate FiO2 12/20/19 12:00 98.6 99 20 119/97 (104) 98 12/20/19 09:00 Room Air Laboratory Tests Test 12/20/19 04:50 White Blood Count 5.9 K/UL (4.8-10.8) Red Blood Count 4.35 M/UL (4.20-5.40) Hemoglobin 14.8 G/DL (12.0-16.0) Hematocrit 40.2 % (37.0-47.0) Mean Corpuscular Volume 92 FL (80-99) Mean Corpuscular Hemoglobin 34.1 PG (27.0-31.0) H Mean Corpuscular Hemoglobin Concent 36.9 G/DL (32.0-36.0) H Red Cell Distribution Width 10.2 % (11.6-14.8) L Platelet Count 176 K/UL (150-450) Mean Platelet Volume 6.0 FL (6.5-10.1) L Neutrophils (%) (Auto) 50.7 % (45.0-75.0) Lymphocytes (%) (Auto) 39.8 % (20.0-45.0) Monocytes (%) (Auto) 5.9 % (1.0-10.0) Eosinophils (%) (Auto) 2.5 % (0.0-3.0) Basophils (%) (Auto) 1.1 % (0.0-2.0) Erythrocyte Sedimentation Rate 10 MM/HR (0-20) Sodium Level 139 MMOL/L (136-145) Potassium Level 3.4 MMOL/L (3.5-5.1) L Chloride Level 103 MMOL/L (98-107) Carbon Dioxide Level 22 MMOL/L (21-32) Anion Gap 14 mmol/L (5-15) Blood Urea Nitrogen 5 mg/dL (7-18) L Creatinine 0.7 MG/DL (0.55-1.30) Estimat Glomerular Filtration Rate > 60 mL/min (>60) Glucose Level 85 MG/DL (74-106) Lactic Acid Level 0.60 mmol/L (0.4-2.0) Calcium Level 8.8 MG/DL (8.5-10.1) Phosphorus Level 3.5 MG/DL (2.5-4.9) Magnesium Level 2.6 MG/DL (1.8-2.4) H Total Bilirubin 1.0 MG/DL (0.2-1.0) Aspartate Amino Transf (AST/SGOT) 52 U/L (15-37) H Alanine Aminotransferase (ALT/SGPT) 50 U/L (12-78) Alkaline Phosphatase 35 U/L (46-116) L C-Reactive Protein, Quantitative 1.3 mg/dL (0.00-0.90) H Total Protein 7.1 G/DL (6.4-8.2) Albumin 3.9 G/DL (3.4-5.0) Globulin 3.2 g/dL Albumin/Globulin Ratio 1.2 (1.0-2.7) Microbiology Date/Time Source Procedure Growth Status 12/18/19 04:10 Blood Blood Culture - Preliminary NO GROWTH AFTER 24 HOURS Resulted 12/18/19 03:55 Blood Blood Culture - Preliminary NO GROWTH AFTER 24 HOURS Resulted 12/18/19 04:50 Nasopharynx SARS-CoV-2 RdRp Gene Assay - Final Complete Intake and Output 12/19/19 12/20/19 19:00 07:00 Intake Total 499.504 ml 150 ml Balance 499.504 ml 150 ml Intake Oral 150 ml IV Total 499.504 ml # Voids 1 Objective PHYSICAL EXAMINATION: GENERAL: The patient awake and responsive, no acute distress. HEAD AND NECK: Pupils are equal and reactive to light. Extraocular muscles intact. Neck was supple. No JVD. LUNGS: Good air entry. No wheezing or rales. HEART: S1, S2. Regular rhythm. No gallops. ABDOMEN: Soft, nontender, nondistended. Positive bowel sounds. EXTREMITIES: No cyanosis, clubbing, or edema. NEUROLOGIC: Cranial nerves II through XII grossly intact. Motor 5/5 in all extremities. Gait was not assessed due to patient's status . RECTAL: Refused and deferred. GENITOURINARY: Refused and deferred. PSYCHIATRIC: Mood and affect is depressed. Assessment/Plan Assessment/Plan ASSESSMENT: 1. Leukocytosis, possible early sepsis versus SIRS. 2. Alcoholism with alcohol withdrawal. 3. Hypokalemia. 4. Hypomagnesemia. 5. Depression. 6. Dehydration. 7. Intractable and nausea vomiting possible due to alcohol induced. PLAN: 1. Admit patient to monitored unit. We will follow up with 2. =Pulmonary Critical Care 3. Dr. Hall = Infectious Disease. 4. S/P Zosyn, continue Bactrim as per Dr. Hall. 5. continue librium for alcohol withdrawal precaution. 6. Code status is Full code. 7. DVT prophylaxis with heparin subcutaneous. 8. CIWA=33/67 9. Discharge home today Joey Kahn MD Dec 20, 2019 16:07
--- NOTE | 2019-12-21 14:13 | Discharge Summary ---
Discharge Summary Discharge Summary _ DATE OF ADMISSION: 12/18/2019 DATE OF DISCHARGE: 12/20/2019 DISCHARGED BY: Dr. Quintana REASON FOR ADMISSION: 29 years old female with past medical history of alcoholism, presented to emergency department complaining of nausea and vomiting for 1 day. Patient admitted to consuming alcohol on a daily basis, including wine, hard liquor and beer. When she gets the symptoms , she stopped drinking ,symptoms improved and she proceed with drinking again. She denied chest pain or shortness of breath She apparently fell recently and hit her head few times. She denied loss of consciousness or double vision, no hematuria ,hematochezia, hemoptysis. Shortly after initial evaluation in emergency department patient noted to have leukocytosis WBC 24, stable hemoglobin and hematocrit. Laboratory work-up revealed potassium - 2.2, magnesium -1.3. Lactic acid 6.3 . Total bilirubin 2.3 , direct bilirubin 0.5 . AST 50 ALT 48. Urinalysis revealed +2 protein , +4 ketones , +1 leukocyte esterase, no pyuria and few bacteria. CT of the head revealed no acute intracranial process. Chest x-ray demonstrated no acute cardiopulmonary pathology. Rapid COVID-19 in emergency department was negative. Patient subsequently admitted for further management. CONSULTANTS: pulmonary /critical care Dr. Bebe WARD specialist Dr. Hall [facility]: Patient admitted and started on empiric antibiotics and aggressive IV hydration with replacement of magnesium and potassium. Withdrawal precaution maintained. DVT prophylaxis provided. Anxiolytic were on board as needed. Antiemetic provided as needed . Leukocytosis resolved the next day. DVT prophylaxis provided. Supportive care provided. Patient counseled on abstinence from ETOH. RPR and HIV were both nonreactive. GC/CT pending at the time of this dictation. Lactic acid trended down and resolved. Total and direct bilirubin trended down to marcela. Patient noted to have infected right ear piercing with furuncle . Initially started empiric antibiotics stopped, and patient started on Bactrim Continue oral Bactrim for total of 7 days. Blood cultures were negative. Patient clinically stabilized and was ready for discharge home. FINAL DIAGNOSES: Leukocytosis -resolved Possibly early sepsis versus SIRS Alcoholism with alcohol withdrawal ETOH abuse Electrolyte imbalance: hypokalemia, hypomagnesemia Dehydration Lactic acidosis -resolved Right infected ear piercing/furuncle Status post recent fall Intractable nausea and vomiting probably alcohol induced Depression DISCHARGE MEDICATIONS: See Medication Reconciliation list. DISCHARGE INSTRUCTIONS: Patient was discharged home. Follow-up with a primary care provider in 1 week. Patient was counseled on abstinence from ETOH I have been assigned to dictate discharge summary for this account. I was not involved in the patient's management. Evi Francis NP Dec 21, 2019 14:12
--- NOTE | 2019-12-21 15:08 | NUR ---
INSURANCE FAXED CLINICALS/ D/C INSTRUCTIONS TO [employer] [facility] PH [phone]
--- NOTE | 2019-12-23 10:25 | Coder Physician Query ---
Clarification is required for compliance, coding accuracy, and to reflect severity of illness for this patient. Dear Dr. ZAVALA Date:12/23/19 PERLITE GRINDER: BLAYNE VENTURA Blood cultures were negative. Leukocytosis- likely reactive Shortly after initial evaluation in emergency department patient noted to have leukocytosis WBC 24 FINAL DIAGNOSES: Leukocytosis -resolved -Possibly early sepsis versus SIRS Alcoholism with alcohol withdrawal Electrolyte imbalance: hypokalemia, hypomagnesemia Dehydration, Lactic acidosis -resolved Right infected ear piercing/furuncle PER ID:Leukocytosis, SP- reactive Lactic acidosis; improving -12/17 u/a wbc 0-2, nit +, leuk +2; ucx p (no UTI symptoms) CXR : no acute process A posssible diagnois of SEPSIS was made in the medical record. Upon review, it is difficult to determine whether this diagnosis has been ruled in, ruled out,or is still being worked up. Please indicate below the status of the SEPSIS diagnosis. [] Treated and resolve [] Presumed and treated [] Currently under treatment [] Still being worked-up [] Ruled out [x] SIRS ONLY, REACTIVE LEUKOCYTOSIS Physician signature Date Please also document in your Progress Notes and/or Discharge Summary and indicate if the condition was present on admission. MARKEL
--- NOTE | 2019-12-23 22:07 | Cardiology Report ---
APPROVED REPORT EKG Measurement Heart [id number] <Conclusion> Sinus rhythm Prolonged QT Abnormal ECG
== END 2019-12-20 14:43 | disposition home or self-care (01) | DRG 775 ==
LOC: EMR 03:50 → 2W 05:46 → EDBEDREQ 06:44 → 2W 07:19 → 3E 12-19 14:05
DX: F10.239 Alcohol dependence with withdrawal, unspecified (principal); R65.10 Systemic inflammatory response syndrome (SIRS) of non-infectious origin without acute organ dysfunction; E87.6 Hypokalemia; E83.42 Hypomagnesemia; E86.0 Dehydration; E87.2 Acidosis; H60.01 Abscess of right external ear; R11.2 Nausea with vomiting, unspecified; F32.9 Major depressive disorder, single episode, unspecified
CPT/HCPCS: 36415; 70450; 71045; 80053; 80307; 81003; 81025; 82248; 82803; 83605; 83690; 83735; 84100; 85007; 85025; 85610; 85651; 85730; 86140; 86592; 86703; 86850; 86900; 86901; 87040; 87491; 87590; 93005; 96361; 96365; 96367; 96375; 99291; J2405; J7030; U0002

== ENCOUNTER 2020-02-02 20:17 | Emergency (ER) | payer MEDICAID ==
[~2020-02-02] VITALS: Ht 175.3 cm; Wt 56.7 kg
[~2020-02-02 20:17] MED LIST changes: +ARICEPT5 MG ORAL; +ASPIRIN-LOW81 MG ORAL; +ATORVASTATIN CA10 MG ORAL; +COREG6.25 MG ORAL; +HUMULIN R100 UNIT/1 SUBQ; +HYDRALAZINE HCL25 M1 ORAL
[2020-02-02 20:30] VITALS: BP 157/97
--- NOTE | 2020-02-02 20:30 | NUR ---
ED Nurse Note: walkedi n to ed c/o nv onset this am after drinking last night that triggered emesis. pt is actively vomitting and reports tingling in upper ext with agitation. nad, aaox4, ambulatory, on youth nutritional monitor, ermd at bedside.
[2020-02-02] MEDS ORDERED: Thiamine HCl 100 MG in D5W 55 ML IV ONE (20:45)
[2020-02-02] MEDS ORDERED: LORazepam Inj 2mg/ml 1ml IV ONE (20:45)
[2020-02-02] MEDS ORDERED: Magnesium Sulfate 2,000 MG in NS 100 ML IV ONE (20:45)
[2020-02-02] MEDS ORDERED: Magnesium Sulfate 2,000 MG, Folic Acid 1 MG, Multivitamin - 12 Injection 10 ML in Sodiu... IV ONE (20:45)
--- NOTE | 2020-02-02 20:45 | NUR ---
ED Nurse Note: blood and urine collected and sent to lab
--- NOTE | 2020-02-02 20:49 | Emergency Room Report ---
History of Present Illness General Chief Complaint: Vomiting Present Illness HPI Patient is a 29-year-old female presents for increased generalized weakness and tremulousness. Reports having prior history of alcohol abuse states that she had been on a 2-week drinking binge and last had alcohol approximately 1 day ago. Denies any prior seizures. Reports of increased tremulousness. Denies any vomiting or hematemesis. Denies any pain. Reports having previous ER visit for similar symptoms in the past. Multiple episodes of nonbloody emesis. Been able to maintain fluids and have not been able to eat. Allergies: Coded Allergies: No Known Allergies (Unverified , 07/03/19) COVID-19 Screening Contact w/high risk pt: No Recent Travel to affected area: No Experienced COVID-19 symptoms?: No COVID-19 Testing performed LOADING DOCK HAND: No Patient History Past Medical History: see triage record Last Menstrual Period: 1015 Now: No Reviewed Nursing Documentation: PMH: Agreed; PSxH: Agreed Nursing Documentation-PMH Hx Cardiac Problems: No - anxiety, panic attack. Review of Systems All Other Systems: negative except mentioned in HPI Physical Exam Vital Signs Date Time Temp Pulse Resp B/P (MAP) Pulse Ox O2 Delivery O2 Flow Rate FiO2 02/02/20 20:29 97.3 114 20 183/96 (125) 98 Sp02 EP Interpretation: reviewed, normal General Appearance: normal inspection, well appearing, alert, Chronically Ill Head: atraumatic ENT: normal ENT inspection, hearing grossly normal, normal voice Neck: normal inspection, full range of motion, supple, no bony tend Respiratory: normal inspection, lungs clear, normal breath sounds, no respiratory distress, no retraction, no wheezing Cardiovascular #1: regular rate, rhythm, no edema Gastrointestinal: normal inspection, normal bowel sounds, non tender, soft, no guarding, no hernia Genitourinary: no CVA tenderness Musculoskeletal: normal inspection, back normal, normal range of motion Neurologic: alert, motor strength/tone normal, incident response manager III-XII nml as tested, oriented x3, responsive, speech normal, normal inspection, other - Diffuse tremor Psychiatric: normal inspection, judgement/insight normal, mood/affect normal Medical Decision Making Diagnostic Impression: Primary Impression: Alcohol withdrawal ER Course Patient presented for increased tremulousness. Differential diagnosis include was not limited to alcohol withdrawal, pancreatitis, electrolyte abnormality, among others. Because of complexity of patient's case laboratory tests and imaging studies were ordered. Patient was noted to have some prior history of alcohol abuse and previous episodes of alcohol withdrawal. She appears to be somewhat agitated and appears to have some alcohol withdrawal at this time. She is awake alert and oriented. Patient was given IV fluids as well as IV Ativan. She was given multivitamin as well as thiamine. Patient was noted to have improvement in tremulousness after medications. Stable for outpatient manag ement. She was given prescription for Ativan as well as for Zofran. She is advised to return if worse. She advised outpatient alcohol abuse treatment. This medical record is generated with [employer] hospitality housekeeper software. There may be some hospitality housekeeper discrepancies related to use of this software. Labs Test 02/02/20 21:00 White Blood Count 10.2 K/UL (4.8-10.8) Red Blood Count 4.38 M/UL (4.20-5.40) Hemoglobin 15.0 G/DL (12.0-16.0) Hematocrit 40.9 % (37.0-47.0) Mean Corpuscular Volume 94 FL (80-99) Mean Corpuscular Hemoglobin 34.2 PG (27.0-31.0) Mean Corpuscular Hemoglobin Concent 36.6 G/DL (32.0-36.0) Red Cell Distribution Width 10.0 % (11.6-14.8) Platelet Count 234 K/UL (150-450) Mean Platelet Volume 5.2 FL (6.5-10.1) Neutrophils (%) (Auto) 90.9 % (45.0-75.0) Lymphocytes (%) (Auto) 6.1 % (20.0-45.0) Monocytes (%) (Auto) 2.5 % (1.0-10.0) Eosinophils (%) (Auto) 0.0 % (0.0-3.0) Basophils (%) (Auto) 0.5 % (0.0-2.0) Prothrombin Time 10.6 SEC (9.30-11.50) Prothromb Time International Ratio 1.0 (0.9-1.1) Activated Partial Thromboplast Time 21 SEC (23-33) Urine Color Pale yellow Urine Appearance Slightly cloudy Urine pH 6 (4.5-8.0) Urine Specific [place] 1.020 (1.005-1.035) Urine Protein 2+ (NEGATIVE) Urine Glucose (UA) Negative (NEGATIVE) Urine Ketones 4+ (NEGATIVE) Urine Blood 1+ (NEGATIVE) Urine Nitrite Negative (NEGATIVE) Urine Bilirubin Negative (NEGATIVE) Urine Urobilinogen Normal MG/DL (0.0-1.0) Urine Leukocyte Esterase Negative (NEGATIVE) Urine RBC 5-10 /HPF (0 - 2) Urine WBC 0-2 /HPF (0 - 2) Urine Squamous Epithelial Cells Moderate /LPF (NONE/OCC) Urine Amorphous Sediment Many /LPF (NONE) Urine Bacteria Few /HPF (NONE) Urine HCG, Qualitative Negative (NEGATIVE) Sodium Level 137 MMOL/L (136-145) Potassium Level 3.5 MMOL/L (3.5-5.1) Chloride Level 97 MMOL/L (98-107) Carbon Dioxide Level 17 MMOL/L (21-32) Anion Gap 23 mmol/L (5-15) Blood Urea Nitrogen 7 mg/dL (7-18) Creatinine 1.0 MG/DL (0.55-1.30) Estimat Glomerular Filtration Rate > 60 mL/min (>60) Glucose Level 146 MG/DL (74-106) Calcium Level 9.4 MG/DL (8.5-10.1) Phosphorus Level 3.4 MG/DL (2.5-4.9) Magnesium Level 1.7 MG/DL (1.8-2.4) Total Bilirubin 1.3 MG/DL (0.2-1.0) Direct Bilirubin 0.4 MG/DL (0.0-0.3) Aspartate Amino Transf (AST/SGOT) 26 U/L (15-37) Alanine Aminotransferase (ALT/SGPT) 20 U/L (12-78) Alkaline Phosphatase 41 U/L (46-116) Total Protein 7.5 G/DL (6.4-8.2) Albumin 4.6 G/DL (3.4-5.0) Globulin 2.9 g/dL Albumin/Globulin Ratio 1.6 (1.0-2.7) Salicylates Level 0.5 ug/mL (2.8-20) Urine Opiates Screen Negative (NEGATIVE) Acetaminophen Level < 2 MCG/ML (10-30) Urine Barbiturates Screen Negative (NEGATIVE) Phencyclidine (PCP) Screen Negative (NEGATIVE) Urine Amphetamines Screen Negative (NEGATIVE) Urine Benzodiazepines Screen Negative (NEGATIVE) Urine Cocaine Screen Negative (NEGATIVE) Urine Marijuana (THC) Screen Negative (NEGATIVE) Serum Alcohol 5 mg/dL Last Vital Signs Date Time Temp Pulse Resp B/P (MAP) Pulse Ox O2 Delivery O2 Flow Rate FiO2 02/02/20 20:29 97.3 114 20 183/96 (125) 98 Status: improved Disposition: HOME, SELF-CARE Condition: Stable Scripts Lorazepam* (ATIVAN*) 1 Mg Tablet 1 MG ORAL THREE TIMES A DAY, #15 TAB Prov: Aron Farooq MD 02/02/20 Ondansetron Odt* (ZOFRAN ODT*) 4 Mg Tab.rapdis 4 MG BC EVERY 6 HOURS PRN for Nausea & Vomiting, #10 TAB 0 Refills Prov: Aron Farooq MD 02/02/20 Aron Farooq MD Feb 02, 2020 20:49
[2020-02-02 21:19] LABS: HEMATOCRIT 40.9 % (37.0-47.0); MEAN CORPUSCULAR VOLUME 94 FL (80-99); PLATELET COUNT 234 K/UL (150-450); RED BLOOD COUNT 4.38 M/UL (4.20-5.40); WHITE BLOOD COUNT 10.2 K/UL (4.8-10.8)
[2020-02-02 21:21] LABS: BASOPHILS % (AUTO) 0.5 % (0.0-2.0); LYMPHOCYTES % (AUTO) 6.1 % (20.0-45.0); MONOCYTES % (AUTO) 2.5 % (1.0-10.0); NEUTROPHILS % (AUTO) 90.9 % (45.0-75.0)
[2020-02-02 21:26] LABS: APPEARANCE,URINE SLIGHTLY CLOUDY; BILIRUBIN, URINE NEGATIVE (NEGATIVE); COLOR,URINE PALE YELLOW; GLUCOSE, URINE (UA) NEGATIVE (NEGATIVE); KETONES,URINE 4+ (NEGATIVE); LEUKOCYTE ESTERASE ,URINE NEGATIVE (NEGATIVE); NITRITE,URINE NEGATIVE (NEGATIVE); PH,URINE 6 (4.5-8.0); PROTEIN,URINE 2+ (NEGATIVE); UROBILINOGEN,URINE NORMAL MG/DL (0.0-1.0)
[2020-02-02 21:29] LABS: ANION GAP 23 mmol/L (5-15); BLOOD UREA NITROGEN 7 mg/dL (7-18); CALCIUM 9.4 MG/DL (8.5-10.1); CARBON DIOXIDE 17 MMOL/L (21-32); CHLORIDE 97 MMOL/L (98-107); POTASSIUM 3.5 MMOL/L (3.5-5.1); SODIUM 137 MMOL/L (136-145)
[2020-02-02 21:33] LABS: PHOSPHORUS 3.4 MG/DL (2.5-4.9)
[2020-02-02 21:39] LABS: ALANINE AMINOTRANSFERASE 20 U/L (12-78); ALBUMIN 4.6 G/DL (3.4-5.0); ALBUMIN/GLOBULIN RATIO 1.6 (1.0-2.7); ALKALINE PHOSPHATASE 41 U/L (46-116); ASPARTATE AMINO TRANSFERASE 26 U/L (15-37); BILIRUBIN,TOTAL 1.3 MG/DL (0.2-1.0)
[2020-02-02 21:40] LABS: BILIRUBIN,DIRECT 0.4 MG/DL (0.0-0.3)
[2020-02-02] MEDS ORDERED: ONDANSETRON ODT4 MG BC (22:08)
[2020-02-02] MEDS ORDERED: ATIVAN1 MG ORAL (22:08)
[2020-02-02 23:00] VITALS: BP 137/84
--- NOTE | 2020-02-02 23:01 | NUR ---
ER DISCHARGE NOTE: Patient is cleared to be discharged per ERMD, pt is aox4, on room air, with stable vital signs. pt was given dc and prescription instructions, pt was able to verbalize understanding, pt id band and iv site removed without complications. pt is able to ambulate with steady gait. pt took all belongings.
== END 2020-02-02 23:00 | disposition home or self-care (01) ==
LOC: EMR 20:55
DX: F10.239 Alcohol dependence with withdrawal, unspecified (principal); F41.9 Anxiety disorder, unspecified; F41.0 Panic disorder [episodic paroxysmal anxiety]
CPT/HCPCS: 36415; 80053; 80307; 81003; 81025; 82248; 83735; 84100; 85025; 85610; 85730; 96365; 96366; 96368; 96375; 96376; G0480; G0481; J2405; J3475; J3490; J7030; Z7502; 99284

== ENCOUNTER 2020-02-28 13:59 | Emergency (ER) | payer MEDICAID ==
[~2020-02-28] VITALS: Ht 175.3 cm; Wt 56.7 kg
[~2020-02-28 13:59] MED LIST changes: +ATIVAN1 MG ORAL; +ONDANSETRON ODT4 MG BC
[2020-02-28 14:05] VITALS: BP 159/89
--- NOTE | 2020-02-28 14:05 | NUR ---
ED Nurse Note: Pt walked in to ED from home c/o lower abdominal cramps, nausea, vomiting, diarrhea onset at 4am today. Pt reports hand tremors from alcohol withdrawal. Last alcohol intake was last night. AAOx4, verbally responsive. No SOB, on room air. ERMD at bedside.
--- NOTE | 2020-02-28 14:26 | NUR ---
ED Nurse Note: IV line established. Blood sent to lab.
[2020-02-28] MEDS ORDERED: LORazepam Inj 2mg/ml 1ml IV ONE (14:30)
[2020-02-28 14:40] LABS: BASOPHILS % (AUTO) 0.8 % (0.0-2.0); HEMATOCRIT 43.7 % (37.0-47.0); HEMOGLOBIN 15.9 G/DL (12.0-16.0); LYMPHOCYTES % (AUTO) 13.4 % (20.0-45.0); MEAN CORPUSCULAR VOLUME 96 FL (80-99); MONOCYTES % (AUTO) 7.4 % (1.0-10.0); NEUTROPHILS % (AUTO) 78.3 % (45.0-75.0); PLATELET COUNT 264 K/UL (150-450); RED BLOOD COUNT 4.55 M/UL (4.20-5.40); WHITE BLOOD COUNT 6.6 K/UL (4.8-10.8)
[2020-02-28 14:47] LABS: ANION GAP 20 mmol/L (5-15); BLOOD UREA NITROGEN 4 mg/dL (7-18); CALCIUM 9.3 MG/DL (8.5-10.1); CARBON DIOXIDE 20 MMOL/L (21-32); CHLORIDE 99 MMOL/L (98-107); CREATININE 0.6 MG/DL (0.55-1.30); POTASSIUM 3.4 MMOL/L (3.5-5.1); SODIUM 139 MMOL/L (136-145)
[2020-02-28 14:57] LABS: ALANINE AMINOTRANSFERASE 31 U/L (12-78); ALBUMIN 4.9 G/DL (3.4-5.0); ALBUMIN/GLOBULIN RATIO 1.4 (1.0-2.7); ALKALINE PHOSPHATASE 43 U/L (46-116); ASPARTATE AMINO TRANSFERASE 28 U/L (15-37)
[2020-02-28 15:47] LABS: APPEARANCE,URINE SLIGHTLY CLOUDY; BILIRUBIN, URINE NEGATIVE (NEGATIVE); COLOR,URINE AMBER; GLUCOSE, URINE (UA) NEGATIVE (NEGATIVE); KETONES,URINE 4+ (NEGATIVE); LEUKOCYTE ESTERASE ,URINE NEGATIVE (NEGATIVE); NITRITE,URINE NEGATIVE (NEGATIVE); PH,URINE 8 (4.5-8.0); PROTEIN,URINE 2+ (NEGATIVE); UROBILINOGEN,URINE NORMAL MG/DL (0.0-1.0)
[2020-02-28] MEDS ORDERED: LIBRIUM25 MG ORAL (15:47)
[2020-02-28] MEDS ORDERED: ONDANSETRON ODT4 MG BC (15:47)
[2020-02-28 15:55] VITALS: BP 135/77
--- NOTE | 2020-02-28 15:55 | NUR ---
ED Nurse Note: Pt cleared by ERMD for discharge. DC instructions/prescription was given and explained to pt and verbalized understanding of teachings. All medical deviecs such as ID band and IV line removed. Pt is AAO x4, ambulatory and left with all personal belongings.
[2020-02-28] MEDS ORDERED: chlordiazePOXIDE 25mg Cap ORAL ONE (16:00)
--- NOTE | 2020-02-28 17:10 | Emergency Room Report ---
History of Present Illness General Chief Complaint: Nausea, Vomiting, and Diarrhea Source: Patient, Medical Record Present Illness HPI 29-year-old female presents for evaluation. Complaining of nausea and vomiting. Started this morning. States she drank alcohol last night. Feels shaky. Believes she is going through withdrawal. Has been here previously for alcohol withdrawal. Has been drinking for 1 week now. Denies drug use. Denies SI or HI. No other aggravating relieving factors. Denies any other associated symptoms Allergies: Coded Allergies: No Known Allergies (Unverified , 07/03/19) COVID-19 Screening Contact w/high risk pt: No Recent Travel to affected area: No Experienced COVID-19 symptoms?: Yes COVID-19 Testing performed DOG WARDEN: Yes COVID-19 Screening: Negative COVID-19 COVID-19 Testing Source: last month Patient History Past Medical History: none Past Surgical History: none Pertinent Family History: none Social History: Reports: alcohol use; Denies: smoking, drug use Last Menstrual Period: currently on her period Now: No Immunizations: UTD Reviewed Nursing Documentation: PMH: Agreed; PSxH: Agreed Nursing Documentation-PMH Past Medical History: No History, Except For Hx Cardiac Problems: No - anxiety, panic attack. Review of Systems All Other Systems: negative except mentioned in HPI Physical Exam Vital Signs Date Time Temp Pulse Resp B/P (MAP) Pulse Ox O2 Delivery O2 Flow Rate FiO2 02/28/20 14:02 99.0 98 16 159/89 (112) 97 Room Air Sp02 EP Interpretation: reviewed, normal General Appearance: no apparent distress, alert, GCS 15, non-toxic Head: normocephalic, atraumatic Eyes: bilateral eye normal inspection, bilateral eye PERRL ENT: hearing grossly normal, normal pharynx, no angioedema, normal voice Neck: full range of motion, supple/symm/no masses Respiratory: chest non-tender, lungs clear, normal breath sounds, speaking full sentences Cardiovascular #1: regular rate, rhythm, no edema Cardiovascular #2: 2+ carotid (R), 2+ carotid (L), 2+ radial (R), 2+ radial (L), 2+ dorsalis pedis (R), 2+ dorsalis pedis (L) Gastrointestinal: normal bowel sounds, non tender, soft, non-distended, no guarding, no rebound Rectal: deferred Genitourinary: normal inspection, no CVA tenderness Musculoskeletal: back normal, normal range of motion, gait/station normal, non- tender Neurologic: alert, motor strength/tone normal, oriented x3, sensory intact, responsive, speech normal Psychiatric: judgement/insight normal, memory normal, no suicidal/homicidal ideation, no delusions, anxious Reflexes: 3+ bicep (R), 3+ bicep (L), 3+ tricep (R), 3+ tricep (L), 3+ knee (R), 3+ knee (L) Skin: no rash Lymphatic: no adenopathy Medical Decision Making Diagnostic Impression: Primary Impression: Alcohol withdrawal Qualified Codes: F10.239 - Alcohol dependence with withdrawal, unspecified ER Course Hospital Course 29-year-old female presents ED complaining of shaking, stating she is in withdrawal. Chronic history of alcohol use Differential diagnoses include: Alcohol intoxication, drug abuse, opioid withdrawal, alcohol withdrawal, dehydration, drug seeking behavior Clinical course Patient placed on stretcher. On cardiac catheterization technician. After initial history and physical I ordered labs, IV fluids, Ativan Labs reviewed-electrolytes okay, hemoglobin/hematocrit stable, no leukocytosis, alcohol level 7, aspirin/Tylenol levels negative Reassessment patient states she feels better. Vitals stable. No signs of DTs. Will give Librium in ED. Will discharge home with Librium. Will provide detox referrals. i. I feel this is a highly complex case requiring extensive working including EKG/Rhythm strip, Xray/CT/US, Blood/urine lab work, repeat exams while in ED, and administration of strong opiates/narcotics for pain control, admission to hospital or close patient follow up. Diagnosis - alcohol withdrawal Stable and discharged to home with prescription for Librium. Followup with PMD. Return to ED if symptoms recur or worsen Laboratory Tests Test 02/28/20 14:26 02/28/20 15:34 White Blood Count 6.6 K/UL (4.8-10.8) Red Blood Count 4.55 M/UL (4.20-5.40) Hemoglobin 15.9 G/DL (12.0-16.0) Hematocrit 43.7 % (37.0-47.0) Mean Corpuscular Volume 96 FL (80-99) Mean Corpuscular Hemoglobin 34.9 PG (27.0-31.0) H Mean Corpuscular Hemoglobin Concent 36.4 G/DL (32.0-36.0) H Red Cell Distribution Width 11.0 % (11.6-14.8) L Platelet Count 264 K/UL (150-450) Mean Platelet Volume 5.1 FL (6.5-10.1) L Neutrophils (%) (Auto) 78.3 % (45.0-75.0) H Lymphocytes (%) (Auto) 13.4 % (20.0-45.0) L Monocytes (%) (Auto) 7.4 % (1.0-10.0) Eosinophils (%) (Auto) 0.0 % (0.0-3.0) Basophils (%) (Auto) 0.8 % (0.0-2.0) Sodium Level 139 MMOL/L (136-145) Potassium Level 3.4 MMOL/L (3.5-5.1) L Chloride Level 99 MMOL/L (98-107) Carbon Dioxide Level 20 MMOL/L (21-32) L Anion Gap 20 mmol/L (5-15) H Blood Urea Nitrogen 4 mg/dL (7-18) L Creatinine 0.6 MG/DL (0.55-1.30) Estimat Glomerular Filtration Rate > 60 mL/min (>60) Glucose Level 104 MG/DL (74-106) Calcium Level 9.3 MG/DL (8.5-10.1) Magnesium Level 2.0 MG/DL (1.8-2.4) Total Bilirubin 1.0 MG/DL (0.2-1.0) Aspartate Amino Transf (AST/SGOT) 28 U/L (15-37) Alanine Aminotransferase (ALT/SGPT) 31 U/L (12-78) Alkaline Phosphatase 43 U/L (46-116) L Total Protein 8.3 G/DL (6.4-8.2) H Albumin 4.9 G/DL (3.4-5.0) Globulin 3.4 g/dL Albumin/Globulin Ratio 1.4 (1.0-2.7) Salicylates Level < 0.2 ug/mL (2.8-20) L Acetaminophen Level < 2 MCG/ML (10-30) L Serum Alcohol 7 mg/dL Urine Color Nel Urine Appearance Slightly cloudy Urine pH 8 (4.5-8.0) Urine Specific [place] 1.010 (1.005-1.035) Urine Protein 2+ (NEGATIVE) H Urine Glucose (UA) Negative (NEGATIVE) Urine Ketones 4+ (NEGATIVE) H Urine Blood 3+ (NEGATIVE) H Urine Nitrite Negative (NEGATIVE) Urine Bilirubin Negative (NEGATIVE) Urine Ictotest Negative (NEGATIVE) Urine Urobilinogen Normal MG/DL (0.0-1.0) Urine Leukocyte Esterase Negative (NEGATIVE) Urine RBC 15-20 /HPF (0 - 2) H Urine WBC 0-2 /HPF (0 - 2) Urine Squamous Epithelial Cells Few /LPF (NONE/OCC) Urine Bacteria Few /HPF (NONE) Urine Mucus Moderate /LPF (NONE/OCC) H Urine HCG, Qualitative Negative (NEGATIVE) Urine Opiates Screen Negative (NEGATIVE) Urine Barbiturates Screen Negative (NEGATIVE) Phencyclidine (PCP) Screen Negative (NEGATIVE) Urine Amphetamines Screen Negative (NEGATIVE) Urine Benzodiazepines Screen Negative (NEGATIVE) Urine Cocaine Screen Negative (NEGATIVE) Urine Marijuana (THC) Screen Negative (NEGATIVE) Last Vital Signs Date Time Temp Pulse Resp B/P (MAP) Pulse Ox O2 Delivery O2 Flow Rate FiO2 02/28/20 15:55 99.0 83 16 135/77 100 Room Air Status: improved Disposition: HOME, SELF-CARE Condition: Stable Scripts Chlordiazepoxide (Chlordiazepoxide HCl) 25 Mg Capsule 25 MG ORAL THREE TIMES A DAY, #15 CAP 0 Refills Prov: Cedric Ayoub MD 02/28/20 Ondansetron Odt* (ZOFRAN ODT*) 4 Mg Tab.rapdis 4 MG BC EVERY 6 HOURS PRN for Nausea & Vomiting, #20 TAB 0 Refills Prov: Cedric Ayoub MD 02/28/20 Referrals: [facility],REFERRING (PCP) Leandra Crawford [facility] Patient Instructions: Alcohol Withdrawal Cedric Ayoub MD Feb 28, 2020 17:10
== END 2020-02-28 15:55 | disposition home or self-care (01) ==
LOC: EMR 14:16
DX: F10.239 Alcohol dependence with withdrawal, unspecified (principal)
CPT/HCPCS: 36415; 80053; 80307; 81003; 81025; 83735; 85025; 96361; 96374; 96375; G0480; G0481; J2405; J7030; Z7502; 99284

== ENCOUNTER 2020-05-07 15:32 | Emergency (ER) | payer MEDICAID ==
[~2020-05-07] VITALS: Ht 175.3 cm; Wt 56.7 kg
[~2020-05-07 15:32] MED LIST changes: +LIBRIUM25 MG ORAL
--- NOTE | 2020-05-07 15:59 | Emergency Room Report ---
History of Present Illness General Chief Complaint: Alcohol Intoxication Source: Patient Present Illness HPI Disclaimer: Please note that this report is being documented using [employer] technology. This can lead to erroneous entry secondary to incorrect interpretation by the dictating instrument. HPI: 30-year-old female history of alcohol abuse presents complaining of nausea vomiting and alcohol withdrawal symptoms. Patient states she has been binge drinking for approximately 2 weeks with beer and hard liquor. Stop drinking last night. Awoke with dry heaves, mild diarrhea, tremulousness and anxiety worsening throughout the day. No prior history of alcohol withdrawal seizure. She has been in a detox program in the past but this was many years ago. She denies chest pain or palpitations. Denies drug use. Denies SI/HI. Takes a daily multivitamin. PMH: Alcohol abuse PSH: Denied Allergies: Denied Social Hx: Alcohol abuse. Denies drug use. Allergies: Coded Allergies: No Known Allergies (Unverified , 07/03/19) COVID-19 Screening Contact w/high risk pt: No Recent Travel to affected area: No Experienced COVID-19 symptoms?: No COVID-19 Testing performed OCC THER: Yes COVID-19 Screening: Negative COVID-19 COVID-19 Testing Source: 02/2020 Patient History Last Menstrual Period: 3 weeks ago Now: No Nursing Documentation-PMH Past Medical History: No History, Except For Hx Cardiac Problems: No - anxiety, panic attack. Review of Systems All Other Systems: negative except mentioned in HPI Physical Exam Vital Signs Date Time Temp Pulse Resp B/P (MAP) Pulse Ox O2 Delivery O2 Flow Rate FiO2 05/07/20 15:41 98.6 98 20 181/107 (131) 96 Room Air General: Awake and alert, mildly tremulous and anxious appearing HEENT: NC/AT. EOMI. Cardiovascular: Tachycardia. S1 and S2 normal. No murmur appreciated Resp: Normal work of breathing. No cough, wheezing or crackles appreciated Abdomen: Abdomen is soft, nondistended. Nontender Skin: Intact. No abrasions, laceration or rash over the exposed skin MSK: Normal tone and bulk. Moving all extremities. No obvious deformity. Neuro: Awake and alert. Mentating appropriately. Tremulous. Anxious appearing Medical Decision Making Diagnostic Impression: Primary Impression: Alcohol withdrawal ER Course Is a 30-year-old female history of alcohol abuse presenting with vomiting and tremulousness. Consistent with alcohol withdrawal. Patient started IV fluids, antiemetics and given Ativan. Labs unremarkable. Symptoms controlled after medications and IV fluids. hCG negative. Patient states her boyfriend has now been sober and she is going to stay sober with him. I provided resources for alcohol abuse counseling and outpatient programs she can follow-up with. She is tolerating p.o. Start her on Librium to control her withdrawal symptoms. Instructed to return new or worsening symptoms. Understands and agrees with this treatment plan. Laboratory Tests Test 05/07/20 16:04 05/07/20 17:30 White Blood Count 4.3 K/UL (4.8-10.8) L Red Blood Count 4.80 M/UL (4.20-5.40) Hemoglobin 16.3 G/DL (12.0-16.0) H Hematocrit 43.7 % (37.0-47.0) Mean Corpuscular Volume 91 FL (80-99) Mean Corpuscular Hemoglobin 33.9 PG (27.0-31.0) H Mean Corpuscular Hemoglobin Concent 37.3 G/DL (32.0-36.0) H Red Cell Distribution Width 10.9 % (11.6-14.8) L Platelet Count 106 K/UL (150-450) L Mean Platelet Volume 5.5 FL (6.5-10.1) L Neutrophils (%) (Auto) 79.1 % (45.0-75.0) H Lymphocytes (%) (Auto) 14.6 % (20.0-45.0) L Monocytes (%) (Auto) 5.8 % (1.0-10.0) Eosinophils (%) (Auto) 0.0 % (0.0-3.0) Basophils (%) (Auto) 0.5 % (0.0-2.0) Sodium Level 142 MMOL/L (136-145) Potassium Level 3.5 MMOL/L (3.5-5.1) Chloride Level 101 MMOL/L (98-107) Carbon Dioxide Level 23 MMOL/L (21-32) Anion Gap 18 mmol/L (5-15) H Blood Urea Nitrogen 11 mg/dL (7-18) Creatinine 0.7 MG/DL (0.55-1.30) Estimated Glomerular Filtration Rate > 60 mL/min (>60) Glucose Level 109 MG/DL (74-106) H Calcium Level 9.7 MG/DL (8.5-10.1) Total Bilirubin 1.1 MG/DL (0.2-1.0) H Direct Bilirubin 0.2 MG/DL (0.0-0.3) Aspartate Amino Transferase (AST) 55 U/L (15-37) H Alanine Aminotransferase (ALT) 44 U/L (12-78) Alkaline Phosphatase 56 U/L (46-116) Total Protein 8.4 G/DL (6.4-8.2) H Albumin 4.8 G/DL (3.4-5.0) Globulin 3.6 g/dL Albumin/Globulin Ratio 1.3 (1.0-2.7) Lipase 155 U/L (73-393) Serum Alcohol 67 mg/dL Urine Color Yellow Urine Appearance Slightly cloudy Urine pH 7 (4.5-8.0) Urine Specific [place] 1.015 (1.005-1.035) Urine Protein 3+ (NEGATIVE) H Urine Glucose (UA) Negative (NEGATIVE) Urine Ketones 1+ (NEGATIVE) H Urine Blood 1+ (NEGATIVE) H Urine Nitrite Negative (NEGATIVE) Urine Bilirubin Negative (NEGATIVE) Urine Urobilinogen 1 MG/DL (0.0-1.0) H Urine Leukocyte Esterase Negative (NEGATIVE) Urine RBC 5-10 /HPF (0 - 2) H Urine WBC 0-2 /HPF (0 - 2) Urine Squamous Epithelial Cells Moderate /LPF (NONE/OCC) H Urine Bacteria Few /HPF (NONE) Urine Mucus Many /LPF (NONE/OCC) H Urine HCG, Qualitative Negative (NEGATIVE) Urine Opiates Screen Negative (NEGATIVE) Urine Barbiturates Screen Negative (NEGATIVE) Phencyclidine (PCP) Screen Negative (NEGATIVE) Urine Amphetamines Screen Negative (NEGATIVE) Urine Benzodiazepines Screen Negative (NEGATIVE) Urine Cocaine Screen Negative (NEGATIVE) Urine Marijuana (THC) Screen Negative (NEGATIVE) Last Vital Signs Date Time Temp Pulse Resp B/P (MAP) Pulse Ox O2 Delivery O2 Flow Rate FiO2 05/07/20 15:41 98.6 98 20 181/107 (131) 96 Room Air Disposition: HOME, SELF-CARE Condition: Improved Scripts Chlordiazepoxide (Chlordiazepoxide HCl) 25 Mg Capsule 25 MG ORAL THREE TIMES A DAY, #15 CAP 0 Refills Prov: Chuck Jacques MD 05/07/20 Referrals: NON PHYSICIAN (PCP) Chuck Jacques MD May 07, 2020 15:59
[2020-05-07] MEDS ORDERED: LORazepam Inj 2mg/ml 1ml IV ONE ×2 (16:00→17:45)
[2020-05-07 16:17] LABS: BASOPHILS % (AUTO) 0.5 % (0.0-2.0); HEMATOCRIT 43.7 % (37.0-47.0); HEMOGLOBIN 16.3 G/DL (12.0-16.0); LYMPHOCYTES % (AUTO) 14.6 % (20.0-45.0); MEAN CORPUSCULAR VOLUME 91 FL (80-99); MONOCYTES % (AUTO) 5.8 % (1.0-10.0); NEUTROPHILS % (AUTO) 79.1 % (45.0-75.0); PLATELET COUNT 106 K/UL (150-450); RED CELL DISTRIBUTION WIDTH 10.9 % (11.6-14.8); WHITE BLOOD COUNT 4.3 K/UL (4.8-10.8)
[2020-05-07 16:32] LABS: ANION GAP 18 mmol/L (5-15); BLOOD UREA NITROGEN 11 mg/dL (7-18); CALCIUM 9.7 MG/DL (8.5-10.1); CARBON DIOXIDE 23 MMOL/L (21-32); CHLORIDE 101 MMOL/L (98-107); CREATININE 0.7 MG/DL (0.55-1.30); POTASSIUM 3.5 MMOL/L (3.5-5.1); SODIUM 142 MMOL/L (136-145)
[2020-05-07 16:41] VITALS: BP 156/106
[2020-05-07 16:42] LABS: ALANINE AMINOTRANSFERASE 44 U/L (12-78); ALBUMIN 4.8 G/DL (3.4-5.0); ALBUMIN/GLOBULIN RATIO 1.3 (1.0-2.7); ALKALINE PHOSPHATASE 56 U/L (46-116); ASPARTATE AMINO TRANSFERASE 55 U/L (15-37); BILIRUBIN,TOTAL 1.1 MG/DL (0.2-1.0)
--- NOTE | 2020-05-07 16:44 | NUR ---
ED Nurse Note: pt appears to be a little bit less anxious. moderate tremors noted, denies hallucination auditory/visual, no c/o nausea
--- NOTE | 2020-05-07 16:46 | NUR ---
ED Nurse Note: pt stated that she is withdrawing from alcohol. last drink last night at 2200, woke up today with tremors, n/v/d. pt stated that she has had a rough two weeks and has been drinking significantly more mixture of hard liquor and beer. pt stated that she has gone through withdrawals before. denies hx of seizures.
[2020-05-07 16:59] LABS: BILIRUBIN,DIRECT 0.2 MG/DL (0.0-0.3)
[2020-05-07 17:22] VITALS: BP 155/100
--- NOTE | 2020-05-07 17:30 | NUR ---
ED Nurse Note: pt ambulated to bathroom and gave a urine sample. pt stated that when she got into the bathroom she started to feel nauseated again and tremors increased slightly. pt stated that she just feels like she's been "beat up".
--- NOTE | 2020-05-07 17:35 | NUR ---
ED Nurse Note: reported to ERMD pt's tremors slightly increasing, nauseated and continues to be htn. further orders given
[2020-05-07 17:37] LABS: BILIRUBIN, URINE NEGATIVE (NEGATIVE); GLUCOSE, URINE (UA) NEGATIVE (NEGATIVE); KETONES,URINE 1+ (NEGATIVE); LEUKOCYTE ESTERASE ,URINE NEGATIVE (NEGATIVE); NITRITE,URINE NEGATIVE (NEGATIVE); PH,URINE 7 (4.5-8.0); PROTEIN,URINE 3+ (NEGATIVE); UROBILINOGEN,URINE 1 MG/DL (0.0-1.0)
[2020-05-07 17:43] LABS: APPEARANCE,URINE SLIGHTLY CLOUDY; COLOR,URINE YELLOW
[2020-05-07] MEDS ORDERED: LIBRIUM25 MG ORAL ×3 (17:55→21:14)
--- NOTE | 2020-05-07 17:58 | NUR ---
ED Nurse Note: pt stated that she drove herself here but would obtain alternative transportation to take her home
[2020-05-07] MEDS ORDERED: ONDANSETRON ODT4 MG BC ×3 (18:00→21:14)
[2020-05-07] MEDS ORDERED: chlordiazePOXIDE 25mg Cap ORAL ONE (18:00)
[2020-05-07 18:02] VITALS: BP 147/81
== END 2020-05-07 18:30 | disposition home or self-care (01) ==
LOC: EMR 15:52
DX: F10.139 Alcohol abuse with withdrawal, unspecified (principal); Y90.3 Blood alcohol level of 60-79 mg/100 ml
CPT/HCPCS: 36415; 80053; 80307; 81003; 81025; 82248; 83690; 85025; 96361; 96374; 96375; 96376; G0480; J2405; J7030; Z7502; 99284

== ENCOUNTER 2020-06-17 16:09 | Emergency (ER) | payer MEDICAID ==
[~2020-06-17] VITALS: Ht 175.3 cm; Wt 56.7 kg
[2020-06-17] MEDS ORDERED: Pantoprazole Inj IVP ONE (16:30)
[2020-06-17] MEDS ORDERED: LORazepam Inj 2mg/ml 1ml IV ONE (16:30)
--- NOTE | 2020-06-17 16:40 | Emergency Room Report ---
History of Present Illness General Chief Complaint: Vomiting Source: Patient Present Illness HPI Patient is a 30-year-old female past medical history of alcohol abuse who presents to the ER complaining of nausea, vomiting and alcohol withdrawals. She states that her last drink was last night. Patient denies any head trauma or falls. She states that her back hurts due to all the vomiting. States that she has not been able to keep anything down. She denies any chest pain or shortness of breath. Patient has been seen here previously for the same complaint. 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 Review of Systems All Other Systems: negative except mentioned in HPI Physical Exam Vital Signs Date Time Temp Pulse Resp B/P (MAP) Pulse Ox O2 Delivery O2 Flow Rate FiO2 06/17/20 16:19 97.9 94 16 157/113 (128) 97 Room Air Sp02 EP Interpretation: reviewed, normal General Appearance: alert, GCS 15, non-toxic, mild distress Head: normocephalic, atraumatic Eyes: bilateral eye normal inspection, bilateral eye PERRL ENT: dry mucus membranes Neck: full range of motion, supple, no meningismus Respiratory: normal breath sounds, no respiratory distress Cardiovascular #1: regular rate, rhythm Gastrointestinal: non tender, soft, no guarding, no rebound Rectal: deferred Genitourinary: no CVA tenderness Musculoskeletal: normal range of motion Neurologic: rehabilitation inspector III-XII nml as tested, oriented x3, other - Tremulous Psychiatric: no suicidal/homicidal ideation Skin: no rash Lymphatic: no adenopathy Medical Decision Making Diagnostic Impression: Primary Impression: Alcohol withdrawal Additional Impression: Vomiting ER Course Patient presents with history of alcohol abuse and current alcohol withdrawal. Patient given IV fluids, Zofran, Pepcid and Ativan. On reevaluation at 6 PM patient's tremors have resolved. She is now tolerating p.o. She states that she feels improved. Labs demonstrate no significant acute abnormalities. Patient counseled on the dangers of excessive alcohol use. Patient being discharged home with Barbie as well as Grant. Her boyfriend is coming to pick her up. After discussing risks and benefits of further diagnostics, treatment plans, as well as indications for and risks of admission, the patient is agreeable to being discharged home. I have explained that their evaluation and treatment in the emergency department today is an important step towards them achieving better health but that their evaluation today is not intended to replace further evaluation and treatment by a physician in their local clinic. I have explained that while the current findings suggest no immediate life threatening emergency they will require further evaluation and treatment by a physician of their choice in their area. They understand that it will be necessary for them to review the final reports of their ED visit with their clinic physician. We have reviewed indications for return to the Emergency Department. I have explained that additional time may need to pass and/or additional testing as an outpatient may be necessary before a definitive diagnosis can be made. They tell me they are willing to follow up as instructed within the timeframe I recommend. They appear to understand what we discussed. Additionally they understand that if they are unable to be seen by an outpatient physician they are welcome, and in fact should, return to the Emergency Department for a repeat evaluation. The patient is stable at time of discharge. Laboratory Tests Test 06/17/20 16:27 06/17/20 16:35 Urine Color Yellow Urine Appearance Slightly cloudy Urine pH 8 (4.5-8.0) Urine Specific [place] 1.005 (1.005-1.035) Urine Protein 2+ (NEGATIVE) H Urine Glucose (UA) Negative (NEGATIVE) Urine Ketones 3+ (NEGATIVE) H Urine Blood Negative (NEGATIVE) Urine Nitrite Negative (NEGATIVE) Urine Bilirubin Negative (NEGATIVE) Urine Urobilinogen Normal MG/DL (0.0-1.0) Urine Leukocyte Esterase 1+ (NEGATIVE) H Urine RBC 0-2 /HPF (0 - 2) Urine WBC 2-4 /HPF (0 - 2) Urine Squamous Epithelial Cells Few /LPF (NONE/OCC) Urine Amorphous Sediment Few /LPF (NONE) H Urine Bacteria Few /HPF (NONE) Urine Mucus Few /LPF (NONE/OCC) H Urine HCG, Qualitative Negative (NEGATIVE) Urine Opiates Screen Negative (NEGATIVE) Urine Barbiturates Screen Negative (NEGATIVE) Phencyclidine (PCP) Screen Negative (NEGATIVE) Urine Amphetamines Screen Negative (NEGATIVE) Urine Benzodiazepines Screen Negative (NEGATIVE) Urine Cocaine Screen Negative (NEGATIVE) Urine Marijuana (THC) Screen Negative (NEGATIVE) White Blood Count 10.5 K/UL (4.8-10.8) Red Blood Count 4.37 M/UL (4.20-5.40) Hemoglobin 14.4 G/DL (12.0-16.0) Hematocrit 39.8 % (37.0-47.0) Mean Corpuscular Volume 91 FL (80-99) Mean Corpuscular Hemoglobin 32.9 PG (27.0-31.0) H Mean Corpuscular Hemoglobin Concent 36.2 G/DL (32.0-36.0) H Red Cell Distribution Width 10.6 % (11.6-14.8) L Platelet Count 290 K/UL (150-450) Mean Platelet Volume 5.4 FL (6.5-10.1) L Neutrophils (%) (Auto) % (45.0-75.0) Lymphocytes (%) (Auto) % (20.0-45.0) Monocytes (%) (Auto) % (1.0-10.0) Eosinophils (%) (Auto) % (0.0-3.0) Basophils (%) (Auto) % (0.0-2.0) Neutrophils % (Manual) Pending Lymphocytes % (Manual) Pending Platelet Estimate Pending Platelet Morphology Pending Sodium Level 142 MMOL/L (136-145) Potassium Level 3.5 MMOL/L (3.5-5.1) Chloride Level 101 MMOL/L (98-107) Carbon Dioxide Level 25 MMOL/L (21-32) Anion Gap 16 mmol/L (5-15) H Blood Urea Nitrogen 12 mg/dL (7-18) Creatinine 1.0 MG/DL (0.55-1.30) Estimated Glomerular Filtration Rate > 60 mL/min (>60) Glucose Level 175 MG/DL (74-106) H Calcium Level 9.9 MG/DL (8.5-10.1) Total Bilirubin 1.2 MG/DL (0.2-1.0) H Direct Bilirubin 0.3 MG/DL (0.0-0.3) Aspartate Amino Transferase (AST) 36 U/L (15-37) Alanine Aminotransferase (ALT) 39 U/L (12-78) Alkaline Phosphatase 42 U/L (46-116) L Total Protein 7.7 G/DL (6.4-8.2) Albumin 4.7 G/DL (3.4-5.0) Globulin 3.0 g/dL Albumin/Globulin Ratio 1.6 (1.0-2.7) Lipase 100 U/L (73-393) Rhythm Strip Diag. Results Rhythm Strip Time: 18:05 EP Interpretation: yes - Maggie Kelly MD Rate: 97 bpm Rhythm: NSR, no PVC's, no ectopy Last Vital Signs Date Time Temp Pulse Resp B/P (MAP) Pulse Ox O2 Delivery O2 Flow Rate FiO2 06/17/20 16:19 97.9 94 16 157/113 (128) 97 Room Air Disposition: HOME, SELF-CARE Condition: Stable Scripts Chlordiazepoxide Hcl (CHLORDIAZEPOXIDE HCL) 25 Mg Capsule 25 MG PO TID, #20 CAP Prov: Maggie Kelly M.D. 06/17/20 Ondansetron* (ZOFRAN*) 4 Mg Tablet 4 MG ORAL Q6H PRN for Nausea & Vomiting, #14 TAB Prov: Maggie Kelly M.D. 06/17/20 Additional Instructions: The patient was provided with discharge instructions, notified to follow-up with a primary care doctor and or specialist in the next 24-48 hours, and to return to the ED if they have worsening of their symptoms. Please note that this report is being documented using [employer] technology. This can lead to erroneous entry secondary to incorrect interpretation by the dictating instrument. Maggie Kelly M.D. Jun 17, 2020 16:40
[2020-06-17] MEDS ORDERED: Ketorolac 30mg Inj IV ONE (16:45)
[2020-06-17 16:59] VITALS: BP 148/99
[2020-06-17 17:16] VITALS: BP 148/99
[2020-06-17 17:40] LABS: ANION GAP 16 mmol/L (5-15); BLOOD UREA NITROGEN 12 mg/dL (7-18); CALCIUM 9.9 MG/DL (8.5-10.1); CARBON DIOXIDE 25 MMOL/L (21-32); CHLORIDE 101 MMOL/L (98-107); POTASSIUM 3.5 MMOL/L (3.5-5.1); SODIUM 142 MMOL/L (136-145)
[2020-06-17 17:45] LABS: BILIRUBIN, URINE NEGATIVE (NEGATIVE); GLUCOSE, URINE (UA) NEGATIVE (NEGATIVE); KETONES,URINE 3+ (NEGATIVE); LEUKOCYTE ESTERASE ,URINE 1+ (NEGATIVE); NITRITE,URINE NEGATIVE (NEGATIVE); PH,URINE 8 (4.5-8.0); PROTEIN,URINE 2+ (NEGATIVE); UROBILINOGEN,URINE NORMAL MG/DL (0.0-1.0)
[2020-06-17 17:47] VITALS: BP 144/75
[2020-06-17 17:49] LABS: ALANINE AMINOTRANSFERASE 39 U/L (12-78); ALBUMIN 4.7 G/DL (3.4-5.0); ALBUMIN/GLOBULIN RATIO 1.6 (1.0-2.7); ALKALINE PHOSPHATASE 42 U/L (46-116); ASPARTATE AMINO TRANSFERASE 36 U/L (15-37); BILIRUBIN,TOTAL 1.2 MG/DL (0.2-1.0); HEMATOCRIT 39.8 % (37.0-47.0); HEMOGLOBIN 14.4 G/DL (12.0-16.0); MEAN CORPUSCULAR VOLUME 91 FL (80-99); PLATELET COUNT 290 K/UL (150-450); RED BLOOD COUNT 4.37 M/UL (4.20-5.40); RED CELL DISTRIBUTION WIDTH 10.6 % (11.6-14.8); WHITE BLOOD COUNT 10.5 K/UL (4.8-10.8)
[2020-06-17 17:51] LABS: APPEARANCE,URINE SLIGHTLY CLOUDY; COLOR,URINE YELLOW
[2020-06-17 17:55] LABS: BILIRUBIN,DIRECT 0.3 MG/DL (0.0-0.3)
[2020-06-17] MEDS ORDERED: CHLORDIAZEPOXID25 MG PO (18:03)
[2020-06-17] MEDS ORDERED: ZOFRAN4 M3 ORAL (18:03)
[2020-06-17] MEDS ORDERED: chlordiazePOXIDE 25mg Cap ORAL ONE (18:15)
== END 2020-06-17 18:28 | disposition home or self-care (01) ==
LOC: EMR 16:41
DX: F10.239 Alcohol dependence with withdrawal, unspecified (principal); R11.10 Vomiting, unspecified
CPT/HCPCS: 36415; 80053; 80307; 81003; 81025; 82248; 83690; 85007; 85025; 96361; 96374; 96375; 96376; J1885; J2405; J7030; S0164; Z7502; 99284